=== PATIENT | male | born 2000 | race Caucasian/White ===

== ENCOUNTER 2018-07-23 10:36 | Inpatient (IN) ==
--- NOTE | 2018-07-23 11:24 | XR ---
EXAM DATE: 07/23/2018 11:12 AM EDT AGE/SEX: 17 years / Male INDICATIONS: . Rigth chest pain CLINICAL DATA: This is the patient's initial encounter. Patient reports that signs and symptoms have been present for 1 week and indicates a pain score of 3/10. MEDICAL/SURGICAL HISTORY: . Left pneumothorax . Left chest tube COMPARISON: [facility], XR CHEST PA AND LAT, 06/09/2018. . FINDINGS: There is a small right-sided apical pneumothorax measuring up to 3.2 cm. Lungs are clear. Cardiomegal y some contours are within normal limits. Bony thorax is intact. CONCLUSION: 1. Small right apical pneumothorax measuring up to 3.2 cm. Electronically signed by: Travis Caldwell MD 07/23/2018 11:23 AM EDT
--- NOTE | 2018-07-23 11:56 | ED ---
HPI General Chief Complaint: Respiratory Symptoms Stated Complaint: medical Time Seen by Provider: 07/23/18 11:38 Source: patient Mode of arrival: ambulatory Limitations: no limitations History of Present Illness HPI narrative: The patient is a 17-year-old male who presents to the emergency department for chest pain. The patient states he sneezed approximately 10 days ago and developed sudden sharp right-sided chest pain. The patient's pain is located over the right aspect of the chest, worse with lying over the affected area, certain movements, and inspiration. He does complain of mild shortness of breath. The patient has a history of similar symptoms in the past secondary to a spontaneous pneumothorax on the left side that was treated with 2 different thoracotomy tubes. The patient denies any known history of connective tissue disorder such as Marfan syndrome or Isaura- Danlos syndrome. The patient does state he is approximately 6 3-6 4 and height. He denies any trauma to the chest wall. Symptoms have been progressing. The patient does not currently have a primary physician or mathematics technician. MD complaint: chest pain Complete Quality Measures for STEMI Alert Patients STEMI Alert: No Onset (ago): day(s) Duration: constant Onset: other (Occurred after sneezing) Pain location: right chest Severity: moderate Severity scale (1-10): 5 Quality: sharp Pain radiation: none Relieving factors: nothing Exacerbating factors: inspiration and movement Context: other Associated symptoms: nausea Treatments prior to arrival chest pain: none Related Data Previous Rx's Medication Instructions Recorded tramadol 50 mg PO Q6H PRN #30 tab 06/02/18 Allergies Allergy/AdvReac Type Severity Reaction Status Date / Time adhesive tape Allergy Intermediate Rash Verified 05/27/18 06:44 zinc oxide Allergy Intermediate Nausea/Vomi Verified 05/27/18 06:44 ting Review of Systems ROS: all other systems reviewed are negative [facility] Medical History Medical History History of pneumothorax (Acute) Surgical History Surgical History H/O chest tube placement (Acute) History of lung surgery (Acute) Family History Family History Other Patient denies significant medical history Social History Social History Substance History: No History of Abuse Second Hand Smoke Exposure: No Smoking Status: Never smoker How Often Do You Have a Drink Containing Alcohol: Never Recent Travel in [facility] within the Last 8 Weeks: No Recent Out of Country Travel within the Last 8 Weeks: No Exam Narrative Exam Narrative: GENERAL: Awake, alert, pleasant 17-year-old male who appears his stated age and is in no acute respiratory distress. SKIN: Focused skin assessment warm/dry. HEAD: Atraumatic. Normocephalic. EYES: Pupils equal and round. No scleral icterus. No injection or drainage. ENT: No nasal bleeding or discharge. Mucous membranes pink and moist. NECK: Trachea midline. No JVD. CARDIOVASCULAR: Regular rate and rhythm. No murmur appreciated. RESPIRATORY: No accessory muscle use. Diminished breath sounds right apex. GASTROINTESTINAL: Abdomen soft, non-tender, nondistended. MUSCULOSKELETAL: No obvious deformities. No clubbing. No cyanosis. No edema. NEUROLOGICAL: Awake and alert. No obvious cranial nerve deficits. Motor grossly within normal limits. Normal speech. PSYCHIATRIC: Appropriate mood and affect; insight and judgment normal. Procedures Chest Tube Chest Tube 1: Chest Tube Location: Mid-Axillary Chest Size of Tube (cm): 10 Chest Tube Procedure: Yes betadine prep and sterile drapes applied Tube Sutured to Skin: Yes Sterile Dressing Applied: Yes Anesthesia: 1% Lidocaine Volume anesthetic (mL): 10 Incision made with: #11 blade Raymond of Air Preble: Yes Tube Drainage: none Post Procedure CXR?: Yes Patient Tolerated Procedure: Yes Post Procedure: sutured to skin and sterile dressing applied Procedural Sedation Indications: other ASA Class: ASA 1 Normal Healthy Patient Preparation: radiation monitor applied, pulse oximeter, capnometry used, supplemental O2 applied, suction/airway equipment at bedside and IV secured IV Propofol Dose (mgs): 200 Patient Tolerated Procedure: well Complications: none Interventions: oxygen applied Course Initial Documented Vital Signs Temperature 97.6 F 07/23/18 10:41 Pulse Rate 76 07/23/18 10:41 Respiratory Rate 07/23/18 10:41 Blood Pressure 151/99 H 07/23/18 10:41 Pulse Oximetry 99 07/23/18 10:41 Last Documented Vital Signs Temperature 97.6 F 07/23/18 10:41 Pulse Rate 77 07/23/18 11:36 Respiratory Rate 18 07/23/18 11:36 Blood Pressure 117/60 07/23/18 11:36 Pulse Oximetry 100 07/23/18 12:54 Medical Decision Making MDM Narrative Medical decision making narrative: IV was established and the patient was placed on cardiac telemetry monitoring and continuous pulse oximetry monitoring. Chest x-ray was obtained in triage reveals a right pneumothorax which measures 3.2 cm at the right apex. The patient does have a history of left sided pneumothorax, spontaneous, that was treated with 2 different chest tubes. Therefore, call was placed to the on-call mathematics technician. The patient was placed on a nonrebreather. I did have a discussion with the patient regarding possible conscious sedation and chest tube placement. I discussed the patient with the mathematics technician, Dr. Heath, who agrees with chest tube placement. Therefore, the patient had conscious sedation performed and a 10 [place] pigtail chest tube was placed in the right chest. Repeat chest x-ray reveals placement of the chest tube with reinflation of the lung. The patient tolerated the procedure without difficulty. The patient will be a admitted to the on-call medical service. Medical Screen Exam Complete: Yes Emergency Medical Condition: Yes Differential Diagnosis Differential Diagnosis: Differential diagnosis includes spontaneous pneumothorax , hemothorax, clinic tissue disorder, rib fracture, pulmonary contusion. Imaging Data Radiologist's impression: Chest X-Ray 07/23/18 00:00 CONCLUSION: 1. Small right apical pneumothorax measuring up to 3.2 cm. Chest X-Ray 07/23/18 12:37 CONCLUSION: Right-sided chest tube now in place. Marked decrease in size of right pneumothorax. Discharge Plan Discharge Disposition Patient Disposition: 30 Still Patient Discharge Condition Condition: Stable Discharge Details Diagnosis: Primary spontaneous pneumothorax Physicians Team ED Provider: Jesse Mathis Primary Care Provider: Primary Care Nai,Nataliya Other Providers: Nieves Landers ; Angel Hagan Rxs /Orders / Referrals /Forms Prescriptions: No Action tramadol 50 mg Tablet 50 mg PO Q6H PRN (Reason: Pain) Qty: 30 RF: 0 Status ED Status: Pending Admission
[2018-07-23] MEDS ORDERED: Sod Chloride 0.9% Inj 1,000 ML IV.SIG SCH (12:15)
--- NOTE | 2018-07-23 13:03 | XR ---
EXAM DATE: 07/23/2018 12:59 PM EDT AGE/SEX: 17 years / Male INDICATIONS: Chest tube placement. CLINICAL DATA: This is the patient's initial encounter. Patient reports that signs and symptoms have been present for 1 day and indicates a pain score of Nonresponsive. MEDICAL/SURGICAL HISTORY: . Left pneumothorax . Left chest tube COMPARISON: [facility] [place] 2V PA&LAT, 07/23/2018. . FINDINGS: Single AP view of the chest. Right-sided pigtail chest catheter in place. Marked decrease in size of right pneumothorax. It now measures 7 mm at the right lung apex. Mild subsegmental atelectasis of the right midlung. No evidence of pleural effusion. Cardiomediastinal silhouette within normal limits. CONCLUSION: Right-sided chest tube now in place. Marked decrease in size of right pneumothorax. Electronically signed by: Drew Arevalo MD 07/23/2018 1:02 PM EDT
[2018-07-23] MEDS ORDERED: Acetaminophen 325 MG Tablet PO PRN (13:19)
[2018-07-23] MEDS ORDERED: Ketorolac Inj 30 MG/ML (IVP) Vial IV.PUSH PRN (13:37)
--- NOTE | 2018-07-23 13:45 | P.HPIM ---
History of Present Illness Chief Complaint: Chest pain History of Present Illness: The patient is a 17-year-old male with past medical history of left sided pneumothorax status post VATS procedure who is presenting to the hospital with chest pain. On 04/20/2018 he developed acute shortness of breath along with chest pain. Patient was found to have a left spontaneous pneumothorax with shifting mediastinum, left hydropneumothorax with complete collapse of left lung. He has had a total of 3 chest tubes placed at [facility]. He says that any time a chest tube was removed, he would redevelop the pneumothorax. He had a VATS procedure on 05/10/2018. Patient's family requested a second opinion here at [facility] and he was transferred on 05/26/2018. He was discharged home with a Pneumostat in place which was eventually removed. The patient said he went to his follow-up visit as scheduled. He said that about 1- 1/2-2 weeks ago he sneezed and subsequently developed right-sided chest pain. He did not see any doctor for his chest pain but decided to come into the hospital as he could not sleep overnight. He says that he has been having a lot of sputum production but that is a chronic problem for him. In the emergency department he was found to have a right-sided pneumothorax and a chest tube was placed. The patient complained of mild irritation at the site of the chest tube. Inpatient Certification: I certify that the inpatient services were ordered in accordance with Medicare regulations governing the order. This includes certification that hospital inpatient services are reasonable and necessary and in the case of services not specified as inpatient-only under 42 CFR 419.22(n), that they are appropriately provided as inpatient services in accordance to with the 2-midnight benchmark under 43 CFR 412.3(e) Estimated Total Length of Stay (Days): 2 Plans for Post Hospital Care: Home Review of Systems All other systems reviewed negative except as stated in HPI [facility] - History History Provided By: Patient - Medical History Medical History: Medical History (Last Updated 07/23/18 @ 11:56 by Daphney Renteria) History of pneumothorax - Surgical History Surgical History: Surgical History (Last Updated 07/23/18 @ 13:46 by Karl Knox DO) H/O chest tube placement History of lung surgery - Family History Family History: Family History (Last Updated 07/23/18 @ 13:47 by Karl Knox DO) Other Patient denies significant medical history - Tobacco History Second Hand Smoke Exposure: No Smoking Status: Never smoker - Alcohol History How Often Do You Have a Drink Containing Alcohol: Never - Substance Use History Substance History: No History of Abuse - Travel History Recent Travel in the [place] Within the Last 8 Weeks: No Recent Travel Out of the Country Within the Last 8 Weeks: No - Immunization History Tetanus Immunization: Unsure Medications and Allergies Active Medications: Active Medications Acetaminophen (Tylenol) 650 mg PO Q4H PRN PRN Reason: Temp > 100.4 Albuterol (Duoneb Neb (Prn)) 1 ampul NEB Q2HR NEB PRN PRN Reason: DYSPNEA Albuterol (Duoneb Neb (Aakash)) 1 ampul NEB Q4HR NEB AAKASH Sodium Chloride (Ns Inj) 1,000 mls @ 0 mls/hr IV.SIG BOLUS AAKASH Last Admin: 07/23/18 12:25 Dose: 1,000 mls/hr Ketorolac Tromethamine (Toradol Inj) 30 mg IV.PUSH Q6H PRN PRN Reason: CHEST PAIN Senna/Docusate Sodium (Nalini-Colace) 1 tab PO BID AAKASH Allergies Allergy/AdvReac Type Severity Reaction Status Date / Time adhesive tape Allergy Intermediate Rash Verified 05/27/18 06:44 zinc oxide Allergy Intermediate Nausea/Vomi Verified 05/27/18 06:44 ting Exam Vital signs: Vital Signs 07/23/18 10:41 07/23/18 11:36 07/23/18 12:54 Temperature 97.6 F Pulse Rate 76 77 Respiratory Rate 18 18 Blood Pressure 151/99 H 117/60 Pulse Oximetry 99 100 100 Intake & Output 07/22/18 07/23/18 07/23/18 18:59 06:59 18:59 Weight 53.524 kg Narrative: GENERAL: NAD. SKIN: Focused skin assessment warm/dry. HEAD: Atraumatic. Normocephalic. EYES: Pupils equal and round. ENT: No nasal bleeding or discharge. Mucous membranes pink and moist. NECK: Trachea midline. No JVD. CARDIOVASCULAR: Regular rate and rhythm. No murmur appreciated. RESPIRATORY: No accessory muscle use. Diminished breath sounds right apex. GASTROINTESTINAL: Abdomen soft, non-tender, nondistended. MUSCULOSKELETAL: Chest tube in place on anterior right chest wall. No obvious deformities. No clubbing. No cyanosis. No edema. NEUROLOGICAL: Awake and alert. No obvious cranial nerve deficits. Motor grossly within normal limits. Normal speech. PSYCHIATRIC: Appropriate mood and affect; insight and judgment normal. Results - Imaging Impressions Chest X-Ray 07/23/18 00:00 CONCLUSION: 1. Small right apical pneumothorax measuring up to 3.2 cm. Chest X-Ray 07/23/18 12:37 CONCLUSION: Right-sided chest tube now in place. Marked decrease in size of right pneumothorax. Caprini VTE Risk Assessment Caprini VTE Risk Assessment: No/Low Risk (score <= 1) Caprini Risk Assessment Model: Point Value = 1 Point Value = 2 Point Value = 3 Point Value = 5 Age 41-60 Minor surgery BMI > 25 kg/m2 Swollen legs Varicose veins or History of unexplained or recurrent spontaneous Oral contraceptives or hormone replacement Sepsis (< 1 month) Serious lung disease, including pneumonia (< 1 month) Abnormal pulmonary function Acute myocardial infarction Congestive heart failure (< 1 month) History of inflammatory bowel disease Medical patient at bed rest Age 61-74 Arthroscopic surgery Major open surgery (> 45 min) Laparoscopic surgery (> 45 min) Malignancy Confined to bed (> 72 hours) Immobilizing plaster cast Central venous access Age >= 75 History of VTE Family history of VTE Factor V Leiden Prothrombin [id number] Lupus anticoagulant Anticardiolipin antibodies Elevated serum homocysteine Heparin-induced thrombocytopenia Other congenital or acquired thrombophilia Stroke (< 1 month) Elective arthroplasty Hip, pelvis, or leg fracture Acute spinal cord injury (< 1 month) Prophylaxis Regimen: Total Risk Factor Score Risk Level Prophylaxis Regimen 0-1 Low Early ambulation 2 Moderate Order ONE of the following: *Sequential Compression Device (SCD) *Heparin 5000 units SQ BID 3-4 Higher Order ONE of the following medications: *Heparin 5000 units SQ TID *Enoxaparin/Lovenox 40 mg SQ daily (WT < 150 kg, CrCl > 30 mL/min) *Enoxaparin/Lovenox 30 mg SQ daily (WT < 150 kg, CrCl > 10-29 mL/min) *Enoxaparin/Lovenox 30 mg SQ BID (WT < 150 kg, CrCl > 30 mL/min) AND/OR *Sequential Compression Device (SCD) 5 or more Highest Order ONE of the following medications: *Heparin 5000 units SQ TID (Preferred with Epidurals) *Enoxaparin/Lovenox 40 mg SQ daily (WT < 150 kg, CrCl > 30 mL/min) *Enoxaparin/Lovenox 30 mg SQ daily (WT < 150 kg, CrCl > 10-29 mL/min) *Enoxaparin/Lovenox 30 mg SQ BID (WT < 150 kg, CrCl > 30 mL/min) AND *Sequential Compression Device (SCD) Assessment and Plan - Plan Recurrent pneumothorax The patient has had multiple pneumothoraces on the left side requiring a VATS procedure. The patient is now found to have a right-sided pneumothorax, status post chest tube placement in the emergency department. The trigger seems to have been a sneeze 1.5-2 weeks prior to admission. -pulmonology and cardiothoracic surgery consults pending. -continue chest tube. -oxygen and nebs as needed. -Toradol for pain. -check labs in AM. Possible connective tissue disorder Considering the pt's body habitus and history of recurrent pneumothoraces, a possible connective tissue disorder is suspected. -treat pneumothorax as above. -outpt follow-up. PPx: SCDs
--- NOTE | 2018-07-23 17:10 | MB ---
cc: Angel Hagan MD DATE: 07/23/2018 HISTORY OF PRESENT ILLNESS: The patient is a 17-year-old male, nonsmoker, with a past medical history of spontaneous left pneumothorax, underwent chest tube placement in 03/2018 and had persistent air leak and subsequently underwent VATS procedure. He presented to [facility] ED with sharp right-sided chest pain, worse with lying on the affected area and with deep inspiration. He reports mild shortness of breath. The patient had similar symptoms in the past when he had the spontaneous pneumothorax in 03/2018. He denies any trauma to the chest and denies any history of connective tissue disease such as Marfan's syndrome. A chest x-ray in the ER showed a right apical pneumothorax at 3.2 cm. He underwent a right-sided pigtail chest tube placement in the ER and repeat x-ray post showed a 7-mm pneumothorax at the right lung apex. He is on a nonrebreather mask with saturation of 100%. The patient denies any cough or any constitutional symptoms. In addition, he denies any GI symptoms. PAST MEDICAL HISTORY: Spontaneous left pneumothorax in 03/2018. PAST SURGICAL HISTORY: Previous chest tube placement, previous VATS procedure. ALLERGIES: SEAFOOD, ZINC OXIDE, AND ADHESIVE TAPE. MEDICATIONS AT HOME: Tramadol p.r.n. FAMILY HISTORY: No history of lung disease. SOCIAL HISTORY: Nonsmoker, nondrinker. REVIEW OF SYSTEMS: As per HPI. The rest of review of systems is unremarkable. PHYSICAL EXAMINATION: GENERAL: A 17-year-old male lying in bed, in no acute distress, on 100% nonrebreather. VITAL SIGNS: Temperature 97.6, pulse of 76, respiratory rate of 18, blood pressure 151/99, saturation on 100% nonrebreather. HEENT: Atraumatic, normocephalic. Pupils equal and round, reactive to light and accommodation. Extraocular muscles intact. Conjunctivae pink. Nonicteric sclerae. Oral mucosa within normal. NECK: Supple. No JVD, adenopathy, or thyromegaly. Trachea in the midline. CARDIOVASCULAR: Regular rate and rhythm. Normal S1, S2. No murmurs, rubs, or gallops audible. LUNGS: Bilateral equal air entry. No rales or wheezing. ABDOMEN: Soft, nontender. No distention. Positive bowel sounds. EXTREMITIES: No cyanosis, clubbing, or edema. NEUROLOGIC: No focal sensory deficits. LABORATORY DATA: None available. RADIOGRAPHIC STUDIES: Initial chest x-ray showed a right apical pneumothorax at 3.2 cm. A chest x-ray post pigtail catheter placement showed decrease in the size of the right-sided pneumothorax, now measures 7 mm in the right lung apex. ASSESSMENT: 1. Right apical pneumothorax, status post pigtail catheter placement. 2. History of spontaneous left-sided pneumothorax in 03/2018, status post chest tube placement and VATS procedure. RECOMMENDATIONS: 1. Continue with oxygen and maintain sats above 92%. 2. Bronchodilators in the form of DuoNeb q.4 plus q.2 p.r.n. for shortness of breath. 3. Status post pigtail catheter placement in the ED. A chest tube to 20-cm wall suction. 4. We will consult cardiothoracic surgery. Patient known to them. 5. Pain control. 6. Repeat chest x-ray in a.m. 7. Further recommendations per primary team. 8. Continue other medical management per primary team. Thank you for consultation and allowing us to participate in this patient's care. MD RIO Blackman/sade , 01:12 PM , 01:23 PM
[2018-07-23] MEDS: Ketorolac Inj 30 MG/ML (IVP) Vial IV.PUSH PRN (20:58)
[2018-07-23] MEDS: Senna/Docusate Sodium 8.6/50 MG Tablet PO SCH (20:59)
[2018-07-24] MEDS: Ketorolac Inj 30 MG/ML (IVP) Vial IV.PUSH PRN ×2 (04:52→11:02)
[2018-07-24 06:42] LABS: Baso % (Auto) 0.6 % (0.0-2.0); Eos # (Auto) 0.2 th/mm3 (0.0-0.4); Hemoglobin 16.2 gm/dL (13.0-17.0); Lymph # (Auto) 1.6 th/mm3 (1.0-4.8); Lymph % (Auto) 27.4 % (9.0-44.0); Mean Corpuscular HGB Conc 34.5 % (32.0-36.0); Mean Corpuscular Hemoglobin 30.1 pg (27.0-34.0); Mean Corpuscular Volume 87.3 fL (80.0-100.0); Mean Platelet Volume 9.1 fL (7.0-11.0); Mono # (Auto) 0.3 th/mm3 (0.0-0.9); Mono % (Auto) 4.3 % (0.0-8.0); Neut # (Auto) 3.7 th/mm3 (1.8-7.7); Neut % (Auto) 63.7 % (16.0-70.0); Platelet Count 228 th/mm3 (150-450); Red Blood Count 5.39 mil/mm3 (4.50-5.90); Red Cell Distribution Width 12.9 % (11.6-17.2); White Blood Count 5.8 th/mm3 (4.0-11.0)
[2018-07-24 07:14] LABS: Alanine Aminotransferase 22 U/L (9-52); Albumin 4.1 g/dL (3.4-5.0); Anion Gap 9 meq/L (5-15); Aspartate Aminotransferase 19 U/L (15-39); Blood Urea Nitrogen 8 mg/dL (7-18); Calcium 8.6 mg/dL (8.5-10.1); Carbon Dioxide 28.9 meq/L (21.0-32.0); Chloride 104 meq/L (98-107); Glomerular Filtration Rate Greater Than 89 mL/min (>89); Glucose,Random 121 mg/dL (74-106); Potassium 3.4 meq/L (3.5-5.1); Sodium 142 meq/L (136-145)
[2018-07-24 07:17] LABS: Alkaline Phosphatase 102 U/L (45-117); Total Protein 7.4 g/dL (6.4-8.2)
[2018-07-24] MEDS: Senna/Docusate Sodium 8.6/50 MG Tablet PO SCH ×2 (08:40→22:47)
--- NOTE | 2018-07-24 10:30 | XR ---
EXAM DATE: 07/24/2018 10:18 AM EDT AGE/SEX: 17 years / Male INDICATIONS: Follow up, evaluate right side pneumothorax and chest tube CLINICAL DATA: This is the patient's subsequent encounter. Patient reports that signs and symptoms h ave been present for 2 days and indicates a pain score of 5/10. MEDICAL/SURGICAL HISTORY: . previous history of spontaneous pneumothorax on left side . prior hx of left side chest tube COMPARISON: [facility] [place], CHEST 2V PA&LAT, 07/23/2018. . FINDINGS: Small pigtail catheter in place on the right with persistent 1.3 cm right apical pneumothorax. There is no pneumothorax on the left The heart and pulmonary vascularity are normal. The portion of the bony skeleton visualized is unremarkable. CONCLUSION: Persistent 1.3 cm right apical pneumothorax. Pigtail catheter is not in the apex of the lung. Electronically signed by: Ed Herring MD 07/24/2018 10:29 AM EDT
--- NOTE | 2018-07-24 14:13 | P.PN ---
Subjective Interval history: Nursing denies any deterioration since last night. Patient himself has no new complaints. Physical Exam Vital signs: Vital Signs 07/23/18 15:36 07/23/18 16:00 07/23/18 19:41 Temperature 97.4 F L Pulse Rate 64 39 L 60 Respiratory Rate 18 18 16 Blood Pressure 104/74 102/53 L Pulse Oximetry 100 96 96 07/23/18 20:00 07/24/18 00:00 07/24/18 00:33 Temperature 97.3 F L 97.5 F L Pulse Rate 72 57 L 62 Respiratory Rate 18 18 16 Blood Pressure 129/70 127/64 Pulse Oximetry 99 97 07/24/18 03:51 07/24/18 04:00 07/24/18 08:00 Temperature 96.8 F L 98.2 F Pulse Rate 60 77 61 Respiratory Rate 16 18 16 Blood Pressure 128/59 L 118/58 L Pulse Oximetry 98 98 07/24/18 08:24 07/24/18 11:49 07/24/18 12:00 Temperature 97.6 F Pulse Rate 68 73 71 Respiratory Rate 20 18 16 Blood Pressure 122/58 L Pulse Oximetry 98 Intake & Output 07/23/18 07/24/18 07/24/18 18:59 06:59 18:59 Intake Total 1000 / 1000 860 / 860 Output Total 675 / 675 Balance 1000 / 1000 185 / 185 Weight 53.524 kg 61.4 kg Intake: IV 1000 / 1000 NS Inj 1,000 ML @ Wide Open IV. 1000 / 1000 SIG BOLUS SANTOSH Rx#:[id number] Oral 860 / 860 Other 0 / 0 Output: Urine 675 / 675 Narrative: Clear lung sounds bilaterally, unlabored breathing Chest tube on the right side Results - Labs CBC & Chem 7: 07/24/18 04:54 07/24/18 04:54 Laboratory Results - last 24 hr 07/24/18 07/24/18 04:54 04:54 WBC 5.8 RBC 5.39 Hgb 16.2 Hct 47.0 MCV 87.3 MCH 30.1 MCHC 34.5 RDW 12.9 Plt Count 228 MPV 9.1 Neut % (Auto) 63.7 Lymph % (Auto) 27.4 [place] % (Auto) 4.3 Eos % (Auto) 4.0 Baso % (Auto) 0.6 Neut # (Auto) 3.7 Lymph # (Auto) 1.6 [place] # (Auto) 0.3 Eos # (Auto) 0.2 Baso # (Auto) 0.0 WBC Differential . Differential Comment Auto diff final Sodium 142 Potassium 3.4 L Chloride 104 Carbon Dioxide 28.9 Anion Gap 9 BUN 8 Creatinine 0.88 Estimated GFR Greater than 89 Random Glucose 121 H Calcium 8.6 Total Bilirubin 1.6 H AST 19 ALT 22 Alkaline Phosphatase 102 Total Protein 7.4 Albumin 4.1 - Imaging Impressions Chest X-Ray 07/24/18 00:00 CONCLUSION: Persistent 1.3 cm right apical pneumothorax. Pigtail catheter is not in the apex of the lung. Assessment and Plan - Plan Recurrent pneumothorax The patient has had multiple pneumothoraces on the left side requiring a VATS procedure. The patient is now found to have a right-sided pneumothorax, status post chest tube placement in the emergency department. The trigger seems to have been a sneeze 1.5-2 weeks prior to admission. -pulmonology input appreciated, CT surgery apparently has seen the patient, possible VATS surgery in 2 days. -continue chest tube. -Toradol for pain. Possible connective tissue disorder Considering the pt's body habitus and history of recurrent pneumothoraces, a possible connective tissue disorder is suspected. -treat pneumothorax as above. -outpt follow-up.
--- NOTE | 2018-07-24 17:56 | P.PNPL ---
Subjective Interval history: 17 YOWm with h/o Lt PTX and VATS Now with Rt ptx Chest tube to suction No sob Physical Exam Vital signs: Vital Signs 07/23/18 19:41 07/23/18 20:00 07/24/18 00:00 Temperature 97.3 F L 97.5 F L Pulse Rate 60 72 57 L Respiratory Rate 16 18 18 Blood Pressure 129/70 127/64 Pulse Oximetry 96 99 97 07/24/18 00:33 07/24/18 03:51 07/24/18 04:00 Temperature 96.8 F L Pulse Rate 62 60 77 Respiratory Rate 16 16 18 Blood Pressure 128/59 L Pulse Oximetry 98 07/24/18 08:00 07/24/18 08:24 07/24/18 11:49 Temperature 98.2 F Pulse Rate 61 68 73 Respiratory Rate 16 20 18 Blood Pressure 118/58 L Pulse Oximetry 98 07/24/18 12:00 Temperature 97.6 F Pulse Rate 71 Respiratory Rate 16 Blood Pressure 122/58 L Pulse Oximetry 98 Intake & Output 07/23/18 07/24/18 07/24/18 18:59 06:59 18:59 Intake Total 1000 / 1000 860 / 860 Output Total 675 / 675 Balance 1000 / 1000 185 / 185 Weight 53.524 kg 61.4 kg Intake: IV 1000 / 1000 NS Inj 1,000 ML @ Wide Open IV. 1000 / 1000 SIG BOLUS SANTOSH Rx#:[id number] Oral 860 / 860 Other 0 / 0 Output: Urine 675 / 675 GENERAL: WBWN NAD SKIN: Warm and dry. HEAD: Normocephalic. EYES: No scleral icterus. No injection or drainage. NECK: Supple, trachea midline. No JVD or lymphadenopathy. CARDIOVASCULAR: Regular rate and rhythm without murmurs, gallops, or rubs. RESPIRATORY: Breath sounds equal bilaterally. No accessory muscle use. Rt chest tube to suction GASTROINTESTINAL: Abdomen soft, non-tender, nondistended. MUSCULOSKELETAL: No cyanosis, or edema. BACK: Nontender without obvious deformity. No CVA tenderness. Assessment and Plan - Plan IMPRESSION: Right PTX S/P Chest tube H/O Left VATS PLAN: Chest tube to suction Pain controll with Toradol CTS consulted
[2018-07-25] MEDS: Ketorolac Inj 30 MG/ML (IVP) Vial IV.PUSH PRN ×2 (04:24→15:48)
--- NOTE | 2018-07-25 07:05 | MB ---
cc: Nieves Landers MD DATE: 07/23/2018 HISTORY OF PRESENT ILLNESS: This is a 17-year-old male known to our service, who has undergone previous left video-assisted thoracoscopy back in 04/20/2018 at a [facility] in the [place] area that was transferred to our facility for persistent leak and pneumothorax. During the course of that admission, his pneumothorax spontaneously healed and we were able to successfully remove the chest tube without surgery. He also followed up in our office without any evidence of problems. He returned on this admission with pain on the right side of the chest, worse when lying on the affected area with deep inspiration, similar symptoms that he had back in March. He denied any trauma. Chest x-ray revealed a right apical pneumothorax of 3.2 cm. A right-sided pigtail catheter was placed; post showed a 7 mm pneumothorax at the apex. Currently, the patient is on room air. Chest x-ray shows a persistent 1.3 right apical pneumo. We were consulted to evaluate for right video-assisted thoracoscopy. PAST MEDICAL HISTORY: Includes spontaneous pneumothorax on the left, history of left video-assisted thoracoscopy, chest tube placement. ALLERGIES: INCLUDE ADHESIVE TAPE AND ZINC OXIDE. FAMILY HISTORY: None. SOCIAL HISTORY: No tobacco or alcohol. REVIEW OF SYSTEMS: GENERAL: No night sweats, fever, heat and cold intolerance. SKIN: No psoriasis, itching or hives. HEENT: No blurred vision, hearing loss. RESPIRATORY: Positive for shortness of breath, pleuritic chest pain. GASTROINTESTINAL: No diarrhea or vomiting. GENITOURINARY: No burning, frequency, urgency. CENTRAL NERVOUS SYSTEM: No history of TIA, CVA or seizure disorder. ENDOCRINOLOGY: No history of diabetes and hypothyroidism. PHYSICAL EXAMINATION: VITAL SIGNS: Blood pressure 122/60, heart rate of 70, afebrile. O2 saturation 98 on room air. GENERAL: The patient is awake, alert, in no acute distress. HEENT: Head is normocephalic, atraumatic. Pupils equal and reactive. Oral mucosa pink, moist. NECK: Supple. No JVD. CARDIOVASCULAR: Sounds S1, S2. Regular rate and rhythm. No audible rubs, murmurs, or gallops. LUNGS: He has got a right-sided upper chest wall chest tube to 20 cm of suction with no current air leak. Chest x-ray reviewed as above. EXTREMITIES: No cyanosis, clubbing, or edema. LABORATORY DATA: Lab work shows hemoglobin 16, hematocrit 47, white cell count of 5.8, platelet count of 228. Sodium 142, potassium 3.4, BUN of 8, creatinine 0.88, AST 19, ALT 22. ASSESSMENT: At this time, the patient has undergone previous left video-assisted thoracoscopy and now presents with a right-sided spontaneous pneumothorax. The patient is currently being worked up for possible connective tissue disorder; however, in the meantime this is the second reoccurrence; however, it is on the opposite side of the prior video-assisted thoracoscopy. PLAN: We did discuss undergoing right video-assisted thoracoscopy, bleb resection and pleurodesis. The patient wants to wait until tomorrow to make his decision. We will await further indication from him as to proceed with the procedure. He wants to talk with his family for further guidance. Dictated by AUGUSTIN Lance MD GULSHAN Kate/chari/renea , 03:12 PM , 03:22 PM
--- NOTE | 2018-07-25 07:35 | XR ---
EXAM DATE: 07/25/2018 7:26 AM EDT AGE/SEX: 17 years / Male INDICATIONS: Evaluate right side pneumothorax and chest tube, short of breath CLINICAL DATA: This is the patient's subsequent encounter. Patient reports that signs and symptoms h ave been present for 3 days and indicates a pain score of 5/10. MEDICAL/SURGICAL HISTORY: . spontaneous pneumothorax right side, has had pneumothorax on the le ft in the past also Chest tube, right. left lung stapled COMPARISON: [facility] – [place], CHEST EXPIRATION ONLY, 07/24/2018. . FINDINGS: Right-sided chest tube has been retracted slightly with pigtail tip now projecting over the lateral r ight mid hemithorax. Right apical pneumothorax has slightly enlarged measuring up to 1.8 cm with inte rval development of small amount of subcutaneous emphysema in the superior right chest wall. Cardiome diastinal contours are within normal limits. Bony thorax is intact. CONCLUSION: 1. Mild interval retraction of the right chest tube with slightly enlarged right apical pneumothorax measuring up to 1.8 cm and interval development of small amount of subcutaneous emphysema. Electronically signed by: Travis Caldwell MD 07/25/2018 7:34 AM EDT
[2018-07-25] MEDS: Senna/Docusate Sodium 8.6/50 MG Tablet PO SCH ×2 (10:17→21:04)
--- NOTE | 2018-07-25 11:14 | P.PN ---
Subjective Interval history: Nursing denies any deterioration since last night. Patient himself has no new complaints. Says he wants to get surgery done tomorrow. Physical Exam Vital signs: Vital Signs 07/24/18 11:49 07/24/18 12:00 07/24/18 16:00 Temperature 97.6 F 97.8 F Pulse Rate 73 71 54 L Respiratory Rate 18 16 16 Blood Pressure 122/58 L 114/56 L Pulse Oximetry 98 99 07/24/18 19:47 07/24/18 19:55 07/24/18 23:45 Temperature 97.5 F L Pulse Rate 70 77 102 H Respiratory Rate 20 20 18 Blood Pressure 127/59 L Pulse Oximetry 98 07/25/18 00:00 07/25/18 03:59 07/25/18 04:00 Temperature 97.8 F 97.8 F Pulse Rate 67 64 98 H Respiratory Rate 20 18 18 Blood Pressure 123/58 L 140/65 Pulse Oximetry 99 99 07/25/18 07:56 07/25/18 08:00 Temperature Pulse Rate 58 L Respiratory Rate 16 16 Blood Pressure Pulse Oximetry 99 Intake & Output 07/24/18 07/25/18 07/25/18 18:59 06:59 18:59 Weight 61 kg Narrative: Clear lungs bilaterally, unlabored breathing, Chest tube in place on right side Results - Labs CBC & Chem 7: 07/24/18 04:54 07/24/18 04:54 - Imaging Impressions Chest X-Ray 07/25/18 06:00 CONCLUSION: 1. Mild interval retraction of the right chest tube with slightly enlarged right apical pneumothorax measuring up to 1.8 cm and interval development of small amount of subcutaneous emphysema. Assessment and Plan - Plan Recurrent pneumothorax The patient has had multiple pneumothoraces on the left side requiring a VATS procedure. The patient is now found to have a right-sided pneumothorax, status post chest tube placement in the emergency department. The trigger seems to have been a sneeze 1.5-2 weeks prior to admission. -pulmonology input appreciated, CT surgery apparently has seen the patient, possible VATS surgery in tomorrow -continue chest tube. -Toradol for pain. Possible connective tissue disorder Considering the pt's body habitus and history of recurrent pneumothoraces, a possible connective tissue disorder is suspected. -treat pneumothorax as above. -outpt follow-up.
[2018-07-25] MEDS ORDERED: Dextrose 50% in Water 50 ML Vial IV.PUSH PRN (13:48)
[2018-07-25] MEDS ORDERED: ceFAZolin Inj 2,000 MG in Sodium Chlor 0.9% Inj 80 ML IV.SIG SCH (14:00)
[2018-07-25] MEDS ORDERED: Sodium Chloride 0.9% Irr Bot 500 ML, ceFAZolin Inj 500 MG IRRIGATION SCH ×2 (14:00)
--- NOTE | 2018-07-25 14:00 | P.PNCV ---
- Note Subjective/Hospital Course: 17-year-old male known to our service, who has undergone previous left video- assisted thoracoscopy back in 04/20/2018 at a [facility] in the [place] area that was transferred to our facility for persistent leak and pneumothorax. During the course of that admission, his pneumothorax spontaneously healed and we were able to successfully remove the chest tube without surgery. He also followed up in our office without any evidence of problems. He returned on this admission with pain on the right side of the chest, worse when lying on the affected area with deep inspiration, similar symptoms that he had back in March. He denied any trauma. Chest x-ray revealed a right apical pneumothorax of 3.2 cm. A right-sided pigtail catheter was placed; post showed a 7 mm pneumothorax at the apex. Currently, the patient is on room air. Chest x-ray shows a persistent 1.3 right apical pneumo. We were consulted to evaluate for right video-assisted thoracoscopy. 07/25 CXR noted : . Mild interval retraction of the right chest tube with slightly enlarged right apical pneumothorax measuring up to 1.8 cm and interval development of small amount of subcutaneous emphysema. pt has now agree to right VATS , bleb resection and pleurodesis / will schedule for am keep chest tube to suction Objective: Vital Signs - 24 hr 07/24/18 16:00 07/24/18 19:47 07/24/18 19:55 Temperature 97.8 F 97.5 F L Pulse Rate 54 L 70 77 Respiratory Rate 16 20 20 Blood Pressure 114/56 L 127/59 L Pulse Oximetry 99 98 07/24/18 23:45 07/25/18 00:00 07/25/18 03:59 Temperature 97.8 F Pulse Rate 102 H 67 64 Respiratory Rate 18 20 18 Blood Pressure 123/58 L Pulse Oximetry 99 07/25/18 04:00 07/25/18 07:56 07/25/18 08:00 Temperature 97.8 F 98.1 F Pulse Rate 98 H 58 L 58 L Respiratory Rate 18 16 20 Blood Pressure 140/65 115/64 Pulse Oximetry 99 99 99 GENERAL: A&O x 3 SKIN: Warm and dry. chest tube in place right chest wall , no air leak noted / to 20cm suction HEAD: Normocephalic. EYES: No scleral icterus. No injection or drainage. NECK: Supple, trachea midline. No JVD or lymphadenopathy. CARDIOVASCULAR: Regular rate and rhythm without murmurs, gallops, or rubs. RESPIRATORY: Breath sounds equal bilaterally. No accessory muscle use. GASTROINTESTINAL: Abdomen soft, non-tender, nondistended. MUSCULOSKELETAL: No cyanosis, or edema. BACK: Nontender without obvious deformity. No CVA tenderness. Result Diagrams: 07/24/18 04:54 07/24/18 04:54 - Plan (1) Pneumothorax Plan: for right VATS, bleb resection and pleurodesis in am
[2018-07-25] MEDS ORDERED: ceFAZolin 2 GM Premix Inj 2 GM/100 ML BAG IV.SIG SCH (15:00)
[2018-07-25 15:36] LABS: INR 1.2 Ratio; Prothrombin Time 11.7 sec (9.8-11.6)
--- NOTE | 2018-07-25 18:33 | P.PNPL ---
Subjective Interval history: 17 YOWm with h/o Lt PTX and VATS Now with Rt ptx Chest tube to suction No sob Seen by CTS Physical Exam Vital signs: Vital Signs 07/24/18 19:47 07/24/18 19:55 07/24/18 23:45 Temperature 97.5 F L Pulse Rate 70 77 102 H Respiratory Rate 20 20 18 Blood Pressure 127/59 L Pulse Oximetry 98 07/25/18 00:00 07/25/18 03:59 07/25/18 04:00 Temperature 97.8 F 97.8 F Pulse Rate 67 64 98 H Respiratory Rate 20 18 18 Blood Pressure 123/58 L 140/65 Pulse Oximetry 99 99 07/25/18 07:56 07/25/18 08:00 07/25/18 12:00 Temperature 98.1 F 98.3 F Pulse Rate 58 L 58 L 58 L Respiratory Rate 16 20 20 Blood Pressure 115/64 123/57 L Pulse Oximetry 99 99 98 07/25/18 15:20 07/25/18 17:27 Temperature 97.6 F Pulse Rate 79 80 Respiratory Rate 16 16 Blood Pressure 139/82 Pulse Oximetry 99 Intake & Output 07/24/18 07/25/18 07/25/18 18:59 06:59 18:59 Intake Total 240 / 240 Output Total 3 / 3 Balance 237 / 237 Weight 61 kg Intake: Oral 240 / 240 Output: Chest Tube Drainage 3 #1 Right 3 / Other: Date of Last Bowel Movement 07/25/18 GENERAL: MBMN NAD SKIN: Warm and dry. HEAD: Normocephalic. EYES: No scleral icterus. No injection or drainage. NECK: Supple, trachea midline. No JVD or lymphadenopathy. CARDIOVASCULAR: Regular rate and rhythm without murmurs, gallops, or rubs. RESPIRATORY: Breath sounds equal bilaterally. No accessory muscle use. Rt chest tube to suction GASTROINTESTINAL: Abdomen soft, non-tender, nondistended. MUSCULOSKELETAL: No cyanosis, or edema. BACK: Nontender without obvious deformity. No CVA tenderness. Assessment and Plan - Plan IMPRESSION: Right PTX S/P Chest tube H/O Left VATS PLAN: Chest tube to suction Pain controll with Toradol Plans for VATS in AM
[2018-07-26 04:13] LABS: Amorphous Sediment,Urine Rare /hpf; Bilirubin,Urine Negative (Negative); Clarity,Urine Cloudy (Clear); Color,Urine Yellow (Yellw/Straw); Glucose,Urine (UA) Negative (Negative); Leukocyte Esterase,Urine Negative (Negative); Mucus,Urine Many /lpf (Occasional); Nitrite,Urine Negative (Negative); Specific Gravity,Urine 1.017 (1.002-1.035)
--- NOTE | 2018-07-26 08:40 | P.PN ---
Subjective Interval history: This is a pleasant 17 y/o Male who has history of Left side Pneumothorax status post VATS procedure who came to ER with Chest pain and SOB, the patient was recently discharged from this facility, found to have again Right side Pneumothorax, status post chest tube placement. 07/26: Stable in his bedroom, discussed with nurse Miss Santo, he will go later toady for VATS procedure no nausea, vomit or diarrhea. Physical Exam Vital signs: Vital Signs 07/25/18 12:00 07/25/18 15:20 07/25/18 17:27 Temperature 98.3 F 97.6 F Pulse Rate 58 L 79 80 Respiratory Rate 20 16 16 Blood Pressure 123/57 L 139/82 Pulse Oximetry 98 99 07/25/18 19:00 07/25/18 20:00 07/25/18 20:26 Temperature 97.9 F Pulse Rate 70 65 79 Respiratory Rate 16 Blood Pressure 128/60 Pulse Oximetry 99 07/25/18 22:00 07/25/18 22:25 07/25/18 23:00 Temperature 97.9 F Pulse Rate 91 H 61 97 H Respiratory Rate 18 16 Blood Pressure 120/58 L Pulse Oximetry 98 99 07/26/18 00:00 07/26/18 00:52 07/26/18 01:00 Temperature Pulse Rate 63 56 L 88 Respiratory Rate 18 Blood Pressure Pulse Oximetry 07/26/18 02:00 07/26/18 03:00 07/26/18 04:00 Temperature 98.2 F Pulse Rate 75 88 69 Respiratory Rate 16 Blood Pressure 116/56 L Pulse Oximetry 99 07/26/18 04:44 07/26/18 05:00 07/26/18 06:00 Temperature Pulse Rate 62 71 65 Respiratory Rate 18 Blood Pressure Pulse Oximetry 07/26/18 07:40 Temperature Pulse Rate 81 Respiratory Rate 16 Blood Pressure Pulse Oximetry 95 Intake & Output 07/25/18 07/26/18 07/26/18 18:59 06:59 18:59 Intake Total 240 / 240 240 / 240 Output Total 705 / 705 Balance 237 / 237 -465 / -465 Weight 55 kg Intake: Oral 240 / 240 240 / 240 Output: Urine 700 / 700 Chest Tube Drainage 5 / 5 #1 Right 5 Other: Date of Last Bowel Movement 07/25/18 07/25/18 Narrative: GENERAL: NAD. HEAD: Atraumatic. Normocephalic. ENT: No nasal bleeding or discharge. Mucous membranes pink and moist. NECK: Trachea midline. No JVD. CARDIOVASCULAR: Regular rate and rhythm. No murmur appreciated. RESPIRATORY: breath sounds bilateral, no wheezing or crackles, chest tube in place on right side. GASTROINTESTINAL: Abdomen soft, non-tender, nondistended. MUSCULOSKELETAL: No clubbing cyanosis or edema. NEUROLOGICAL: Awake and alert. PSYCHIATRIC: Appropriate mood and affect; insight and judgment normal. Results - Labs CBC & Chem 7: 07/24/18 04:54 07/24/18 04:54 Laboratory Results - last 24 hr 07/25/18 07/25/18 07/25/18 14:42 14:42 17:21 PT 11.7 H INR 1.2 Urine Color Urine Clarity Urine pH Ur Specific [place] Urine Protein Urine Glucose (UA) Urine Ketones Urine Occult Blood Urine Nitrate Urine Bilirubin Urine Urobilinogen Ur Leukocyte Esterase Urine RBC Urine WBC Amorphous Sediment Urine Mucus Micro UA Comment Ur Microscopic Review Urine Culture Comments Nasal Screen MRSA (PCR) Not detected Blood Type A Negative Blood Type Recheck Required Antibody Screen Negative 07/26/18 02:15 PT INR Urine Color Yellow Urine Clarity Cloudy H Urine pH 7.0 Ur Specific [place] 1.017 Urine Protein Negative Urine Glucose (UA) Negative Urine Ketones Negative Urine Occult Blood Negative Urine Nitrate Negative Urine Bilirubin Negative Urine Urobilinogen 2.0 H Ur Leukocyte Esterase Negative Urine RBC 1 Urine WBC 3 Amorphous Sediment Rare H Urine Mucus Many H Micro UA Comment Culture not ind Ur Microscopic Review Not Reportable Urine Culture Comments Culture not ind Nasal Screen MRSA (PCR) Blood Type Blood Type Recheck Antibody Screen - Imaging Chest X-Ray 07/23/18 00:00 CONCLUSION: 1. Small right apical pneumothorax measuring up to 3.2 cm. Chest X-Ray 07/23/18 12:37 CONCLUSION: Right-sided chest tube now in place. Marked decrease in size of right pneumothorax. Assessment and Plan - Plan Recurrent pneumothorax The patient has had multiple pneumothoraces on the left side requiring a VATS procedure. The patient is now found to have a right-sided pneumothorax, status post chest tube placement in the emergency department. The trigger seems to have been a sneeze 1.5-2 weeks prior to admission. -pulmonology input appreciated, for VATS surgery, bleb resection and Pleurodesis later today. -continue chest tube. -Toradol for pain. Possible connective tissue disorder Considering the pt's body habitus and history of recurrent pneumothoraces, a possible connective tissue disorder is suspected. -treat pneumothorax as above. -outpt follow-up. Code Status: Full code. Discussed Condition With: patient and nurse Miss Santo Discharge Planning: once cleared by specialists.
[2018-07-26] MEDS: Senna/Docusate Sodium 8.6/50 MG Tablet PO SCH ×2 (09:39→23:10)
--- NOTE | 2018-07-26 10:28 | P.PNCV ---
- Note Subjective/Hospital Course: 17-year-old male known to our service, who has undergone previous left video- assisted thoracoscopy back in 04/20/2018 at a [facility] in the [place] area that was transferred to our facility for persistent leak and pneumothorax. During the course of that admission, his pneumothorax spontaneously healed and we were able to successfully remove the chest tube without surgery. He also followed up in our office without any evidence of problems. He returned on this admission with pain on the right side of the chest, worse when lying on the affected area with deep inspiration, similar symptoms that he had back in March. He denied any trauma. Chest x-ray revealed a right apical pneumothorax of 3.2 cm. A right-sided pigtail catheter was placed; post showed a 7 mm pneumothorax at the apex. Currently, the patient is on room air. Chest x-ray shows a persistent 1.3 right apical pneumo. We were consulted to evaluate for right video-assisted thoracoscopy. 07/25 CXR noted : . Mild interval retraction of the right chest tube with slightly enlarged right apical pneumothorax measuring up to 1.8 cm and interval development of small amount of subcutaneous emphysema. pt has now agree to right VATS , bleb resection and pleurodesis / will schedule for am keep chest tube to suction 07/26 on room air, for surgery today Objective: Vital Signs - 24 hr 07/25/18 12:00 07/25/18 15:20 07/25/18 17:27 Temperature 98.3 F 97.6 F Pulse Rate 58 L 79 80 Respiratory Rate 20 16 16 Blood Pressure 123/57 L 139/82 Pulse Oximetry 98 99 07/25/18 19:00 07/25/18 20:00 07/25/18 20:26 Temperature 97.9 F Pulse Rate 70 65 79 Respiratory Rate 16 Blood Pressure 128/60 Pulse Oximetry 99 07/25/18 22:00 07/25/18 22:25 07/25/18 23:00 Temperature 97.9 F Pulse Rate 91 H 61 97 H Respiratory Rate 18 16 Blood Pressure 120/58 L Pulse Oximetry 98 99 07/26/18 00:00 07/26/18 00:52 07/26/18 01:00 Temperature Pulse Rate 63 56 L 88 Respiratory Rate 18 Blood Pressure Pulse Oximetry 07/26/18 02:00 07/26/18 03:00 07/26/18 04:00 Temperature 98.2 F Pulse Rate 75 88 69 Respiratory Rate 16 Blood Pressure 116/56 L Pulse Oximetry 99 07/26/18 04:44 07/26/18 05:00 07/26/18 06:00 Temperature Pulse Rate 62 71 65 Respiratory Rate 18 Blood Pressure Pulse Oximetry 07/26/18 07:00 07/26/18 07:40 07/26/18 08:00 Temperature 98.8 F Pulse Rate 61 81 75 Respiratory Rate 18 16 Blood Pressure 133/62 Pulse Oximetry 100 95 07/26/18 09:00 07/26/18 10:00 Temperature Pulse Rate 76 94 H Respiratory Rate Blood Pressure Pulse Oximetry GENERAL: A&O x 3 SKIN: Warm and dry. right lateral chest tube in place , ? intermittent air leak noted HEAD: Normocephalic. EYES: No scleral icterus. No injection or drainage. NECK: Supple, trachea midline. No JVD or lymphadenopathy. CARDIOVASCULAR: Regular rate and rhythm without murmurs, gallops, or rubs. RESPIRATORY: Breath sounds equal bilaterally. No accessory muscle use. GASTROINTESTINAL: Abdomen soft, non-tender, nondistended. MUSCULOSKELETAL: No cyanosis, or edema. BACK: Nontender without obvious deformity. No CVA tenderness. Labs: Laboratory Results - last 12 hr 07/26/18 02:15 Urine Color Yellow Urine Clarity Cloudy H Urine pH 7.0 Ur Specific [place] 1.017 Urine Protein Negative Urine Glucose (UA) Negative Urine Ketones Negative Urine Occult Blood Negative Urine Nitrate Negative Urine Bilirubin Negative Urine Urobilinogen 2.0 H Ur Leukocyte Esterase Negative Urine RBC 1 Urine WBC 3 Amorphous Sediment Rare H Urine Mucus Many H Micro UA Comment Culture not ind Ur Microscopic Review Not Reportable Urine Culture Comments Culture not ind Result Diagrams: 07/24/18 04:54 07/24/18 04:54 - Plan (1) Pneumothorax Plan: for right VATS, bleb resection and pleurodesis today
[2018-07-26] MEDS ORDERED: Post-op Orders (for Pharmacy) OTHER STA (13:34)
--- NOTE | 2018-07-26 13:42 | P.OP ---
- Preoperative Diagnosis (1) Spontaneous pneumothorax - Postoperative Diagnosis (1) Spontaneous pneumothorax Date of procedure: 07/26/18 Procedure: Right thoracoscopic apical bleb resection, mechanical pleurodesis Anesthesia: MARITZA Surgeon: Nieves Landers MD [employer]: Aline Spain Pathology: other (apical blebs) Operation and Findings: After adequate general anesthesia the patient was placed in the left lateral decubitus position and the right chest was prepped and draped in usual manner. A small anterior port incision was performed and electrocautery was used to obtain hemostasis and carry the dissection down through the fascia. A port was initially placed followed by the camera. Exploration of the right hemithorax was notable for apical blebs. A second posterior port was positioned at ~6th intercostal space. The apical blebs were resected using a surgical stapler. A mechanical pleurodesis was performed at the apex down to the ~3rd rib.. A 28F right chest tube was positioned through the anterior port , and secured with a 0-silk suture. The lung was ventilated and no significant air leaks were found. The subcutaneous tissues of the posterior port was approximated running 2-0 Vicryl suture and the skin was approximated using running 4-0 Monocryl subcuticular stitch. All sponge and history counts were correct at the close the procedure and the patient was transferred to the PACU in stable condition
[2018-07-26] MEDS ORDERED: *Meperidine Inj 25 MG/ML Vial PERIprocedural Use ONLY ONE (14:13)
[2018-07-26] MEDS ORDERED: Morphine Inj 4 MG/ML Vial ONE (14:23)
[2018-07-26] MEDS ORDERED: fentaNYL Citrate Inj 100 MCG/2 ML Ampul ONE (14:23)
[2018-07-26] MEDS ORDERED: *morphine SULFATE 4 MG/ML PERIprocedure ONLY ONE (14:32)
--- NOTE | 2018-07-26 14:45 | XR ---
EXAM DATE: 07/26/2018 2:39 PM EDT AGE/SEX: 17 years / Male INDICATIONS: Post op thoracotomy. CLINICAL DATA: This is the patient's initial encounter. Patient reports that signs and symptoms have been present for 1 day and indicates a pain score of 3/10. MEDICAL/SURGICAL HISTORY: . Previous history of left and right sided pneumothorax. . Left bette g stapled. COMPARISON: C, CHEST 1V SINGLE AP, 07/25/2018. . FINDINGS: Air subcutaneous air along the right hemithorax, a right-sided chest tube is noted. I do not see a pn eumothorax. Heart size normal. Lungs are clear. CONCLUSION: Post surgical changes. Electronically signed by: Robert Patten MD 07/26/2018 2:44 PM EDT
[2018-07-26] MEDS: Ketorolac Inj 30 MG/ML (IVP) Vial IV.PUSH PRN (15:16)
[2018-07-26] MEDS ORDERED: Lidocaine PF 1% Inj 5 ML Syringe INFILTRATN ONE (15:59)
[2018-07-26] MEDS ORDERED: Phenylephrine/NS 1000 MCG/10ML Syringe IV.PUSH ONE (15:59)
[2018-07-26] MEDS ORDERED: Glycopyrrolate Inj 1 MG/5 ML Syringe IV.PUSH ONE (15:59)
[2018-07-26] MEDS ORDERED: Neostigmine Inj 5 MG/5 ML Syringe IV.PUSH ONE (15:59)
--- NOTE | 2018-07-26 18:46 | P.PNPL ---
Subjective Interval history: 17 YOWm with h/o Lt PTX and VATS Now with Rt ptx Chest tube to suction No sob Had Rt thoracoscopic bleb resection and pleurodesis Mild dizziness Physical Exam Vital signs: Vital Signs 07/25/18 19:00 07/25/18 20:00 07/25/18 20:26 Temperature 97.9 F Pulse Rate 70 65 79 Respiratory Rate 16 Blood Pressure 128/60 Pulse Oximetry 99 07/25/18 22:00 07/25/18 22:25 07/25/18 23:00 Temperature 97.9 F Pulse Rate 91 H 61 97 H Respiratory Rate 18 16 Blood Pressure 120/58 L Pulse Oximetry 98 99 07/26/18 00:00 07/26/18 00:52 07/26/18 01:00 Temperature Pulse Rate 63 56 L 88 Respiratory Rate 18 Blood Pressure Pulse Oximetry 07/26/18 02:00 07/26/18 03:00 07/26/18 04:00 Temperature 98.2 F Pulse Rate 75 88 69 Respiratory Rate 16 Blood Pressure 116/56 L Pulse Oximetry 99 07/26/18 04:44 07/26/18 05:00 07/26/18 06:00 Temperature Pulse Rate 62 71 65 Respiratory Rate 18 Blood Pressure Pulse Oximetry 07/26/18 07:00 07/26/18 07:40 07/26/18 08:00 Temperature 98.8 F Pulse Rate 61 81 75 Respiratory Rate 18 16 Blood Pressure 133/62 Pulse Oximetry 100 95 07/26/18 09:00 07/26/18 10:00 07/26/18 11:00 Temperature 98.0 F Pulse Rate 76 94 H 67 Respiratory Rate 18 Blood Pressure 139/59 L Pulse Oximetry 100 07/26/18 11:30 07/26/18 14:15 07/26/18 14:35 Temperature 97.0 F L Pulse Rate 80 125 H 122 H Respiratory Rate 16 22 18 Blood Pressure 149/67 H 147/69 H Pulse Oximetry 99 99 07/26/18 14:55 07/26/18 16:00 07/26/18 18:21 Temperature 98.0 F Pulse Rate 98 H 123 H 63 Respiratory Rate 20 18 Blood Pressure 131/63 142/67 H Pulse Oximetry 99 98 Intake & Output 07/25/18 07/26/18 07/26/18 18:59 06:59 18:59 Intake Total 240 / 240 240 / 240 940 / 940 Output Total 705 / 705 152 / 152 Balance 237 / 237 -465 / -465 788 / 788 Weight 55 kg Intake: Oral 240 / 240 240 / 240 240 / 240 Anesthesia Amount 700 / 700 Output: Urine 700 / 700 Estimated Blood Loss 100 / 100 Chest Tube Drainage 52 / 52 #1 Right Right 52 / 52 Other: # Voids 2 Date of Last Bowel Movement 07/25/18 07/25/18 GENERAL: WBWN, NAD SKIN: Warm and dry. HEAD: Normocephalic. EYES: No scleral icterus. No injection or drainage. NECK: Supple, trachea midline. No JVD or lymphadenopathy. CARDIOVASCULAR: Regular rate and rhythm without murmurs, gallops, or rubs. RESPIRATORY: Breath sounds equal bilaterally. No accessory muscle use. Rt chest tube, no air leak. GASTROINTESTINAL: Abdomen soft, non-tender, nondistended. MUSCULOSKELETAL: No cyanosis, or edema. BACK: Nontender without obvious deformity. No CVA tenderness. Assessment and Plan - Plan IMPRESSION: Right PTX S/P Chest tube H/O Left VATS S/p Rt thoracoscopic bleb resection and Mech pleurodeisi PLAN: Chest tube to suction Pain controll with Toradol Stable on RA
[2018-07-27] MEDS: Ketorolac Inj 30 MG/ML (IVP) Vial IV.PUSH PRN ×2 (03:38→10:30)
--- NOTE | 2018-07-27 03:54 | XR ---
EXAM DATE: 07/27/2018 3:41 AM EDT AGE/SEX: 17 years / Male INDICATIONS: Short of breath. CLINICAL DATA: This is the patient's subsequent encounter. Patient reports that signs and symptoms h ave been present for 1 week and indicates a pain score of 0/10. MEDICAL/SURGICAL HISTORY: . Previous history of left and right sided pneumothorax. . Left lung stapled. [place] [facility] [place]. . FINDINGS: Right chest tube remains in place. There is a tiny apical pneumothorax, unchanged. Right chest wall e mphysema persists. No infiltrate or effusion. Heart size stable, within normal limits. CONCLUSION: Tiny right apical pneumothorax. Chest tube remains in place. No infiltrate or effusion. Electronically signed by: Gee Boothe MD 07/27/2018 3:52 AM EDT
[2018-07-27 06:28] LABS: Hematocrit 44.5 % (39.0-51.0); Hemoglobin 15.7 gm/dL (13.0-17.0); Mean Corpuscular HGB Conc 35.3 % (32.0-36.0); Mean Corpuscular Hemoglobin 30.3 pg (27.0-34.0); Mean Corpuscular Volume 85.7 fL (80.0-100.0); Mean Platelet Volume 8.8 fL (7.0-11.0); Platelet Count 267 th/mm3 (150-450); Red Cell Distribution Width 12.7 % (11.6-17.2)
[2018-07-27 06:50] LABS: Potassium 3.9 meq/L (3.5-5.1)
[2018-07-27 06:53] LABS: Magnesium 2.2 mg/dL (1.5-2.5)
[2018-07-27] MEDS: Senna/Docusate Sodium 8.6/50 MG Tablet PO SCH ×2 (08:25→23:23)
--- NOTE | 2018-07-27 09:01 | P.PN ---
Subjective Interval history: This is a pleasant 17 y/o Male who has history of Left side Pneumothorax status post VATS procedure who came to ER with Chest pain and SOB, the patient was recently discharged from this facility, found to have again Right side Pneumothorax, status post chest tube placement. 07/26: Stable in his bedroom, discussed with nurse Miss Santo, he will go later toady for VATS procedure 07/27: right-sided pneumothorax, status post chest tube placement in the emergency department. status post Right Thoracoscopic apical bleb resection, Mechanical pleurodesis. in his bedroom, no nausea, vomit or diarrhea, Cardiothoracic DRAPERY CUTTER in to see the patient, no distress, talking in full sentences. Physical Exam Vital signs: Vital Signs 07/26/18 09:00 07/26/18 10:00 07/26/18 11:00 Temperature 98.0 F Pulse Rate 76 94 H 67 Respiratory Rate 18 Blood Pressure 139/59 L Pulse Oximetry 100 07/26/18 11:30 07/26/18 14:15 07/26/18 14:35 Temperature 97.0 F L Pulse Rate 80 125 H 122 H Respiratory Rate 16 22 18 Blood Pressure 149/67 H 147/69 H Pulse Oximetry 99 99 07/26/18 14:55 07/26/18 16:00 07/26/18 18:21 Temperature 98.0 F Pulse Rate 98 H 123 H 63 Respiratory Rate 20 18 Blood Pressure 131/63 142/67 H Pulse Oximetry 99 98 07/26/18 19:00 07/26/18 20:00 07/26/18 21:00 Temperature 98.3 F Pulse Rate 85 80 86 Respiratory Rate 16 Blood Pressure 127/58 L Pulse Oximetry 95 07/26/18 22:00 07/26/18 23:00 07/27/18 00:00 Temperature 98.2 F Pulse Rate 82 80 68 Respiratory Rate 16 Blood Pressure 112/53 L Pulse Oximetry 98 07/27/18 01:00 07/27/18 02:00 07/27/18 03:00 Temperature 98 F Pulse Rate 88 82 91 H Respiratory Rate 16 Blood Pressure 93/44 L Pulse Oximetry 98 07/27/18 04:00 07/27/18 04:43 07/27/18 05:00 Temperature Pulse Rate 86 88 Respiratory Rate 16 Blood Pressure Pulse Oximetry 07/27/18 06:00 07/27/18 07:00 07/27/18 08:00 Temperature 97.2 F L Pulse Rate 71 75 80 Respiratory Rate 18 Blood Pressure 121/60 Pulse Oximetry 98 Intake & Output 07/26/18 07/27/18 07/27/18 18:59 06:59 18:59 Intake Total 940 / 940 440 / 440 Output Total 152 / 152 418 / 418 Balance 788 / 788 Weight 57.5 kg Intake: IV 200 / 200 Ancef Inj 1,000 MG In NS Inj 200 / 200 100 ML @ 200 mls/hr IV.SIG Q8H SANTOSH Rx#:[id number] Oral 240 / 240 240 / 240 Anesthesia Amount 700 / 700 Output: Urine 400 / 400 Estimated Blood Loss 100 / 100 Chest Tube Drainage 52 / 52 Right 52 / 52 Right Upper Anterior Other: # Voids 2 Date of Last Bowel Movement 07/25/18 07/26/18 Narrative: GENERAL: NAD. HEAD: Atraumatic. Normocephalic. ENT: No nasal bleeding or discharge. Mucous membranes pink and moist. NECK: Trachea midline. No JVD. CARDIOVASCULAR: Regular rate and rhythm. No murmur appreciated. RESPIRATORY: breath sounds bilateral, no wheezing or crackles, chest tube in place on right side. GASTROINTESTINAL: Abdomen soft, non-tender, nondistended. MUSCULOSKELETAL: No clubbing cyanosis or edema. NEUROLOGICAL: Awake and alert. PSYCHIATRIC: Appropriate mood and affect; insight and judgment normal. Results - Labs CBC & Chem 7: 07/27/18 06:06 07/27/18 06:06 Laboratory Results - last 24 hr 07/27/18 07/27/18 06:06 06:06 WBC 12.0 H RBC 5.20 Hgb 15.7 Hct 44.5 MCV 85.7 MCH 30.3 MCHC 35.3 RDW 12.7 Plt Count 267 MPV 8.8 Potassium 3.9 Magnesium 2.2 - Imaging Impressions Chest X-Ray 07/26/18 13:34 CONCLUSION: Post surgical changes. Chest X-Ray 07/27/18 13:34 CONCLUSION: Tiny right apical pneumothorax. Chest tube remains in place. No infiltrate or effusion. - Procedures Date: 07/26/18 13:36 - Preoperative Diagnosis (1) Spontaneous pneumothorax - Postoperative Diagnosis (1) Spontaneous pneumothorax Date of procedure: 07/26/18 Procedure: Right thoracoscopic apical bleb resection, mechanical pleurodesis Anesthesia: GETA Surgeon: Nieves Landers MD Assessment and Plan - Plan Recurrent pneumothorax The patient has had multiple pneumothoraces on the left side requiring a VATS procedure. now with right-sided pneumothorax, status post chest tube placement in the emergency department. status post Right Thoracoscopic apical bleb resection, Mechanical pleurodesis. POD#1 Possible connective tissue disorder Considering the pt's body habitus and history of recurrent pneumothoraces, a possible connective tissue disorder is suspected. -treat pneumothorax as above. -outpt follow-up. Code Status: Full code. Discussed Condition With: Patient and nurse [facility] Discharge Planning: once cleared by specialists.
--- NOTE | 2018-07-27 14:36 | P.PNCV ---
- Note Subjective/Hospital Course: 17-year-old male known to our service, who has undergone previous left video- assisted thoracoscopy back in 04/20/2018 at a [facility] in the [place] area that was transferred to our facility for persistent leak and pneumothorax. During the course of that admission, his pneumothorax spontaneously healed and we were able to successfully remove the chest tube without surgery. He also followed up in our office without any evidence of problems. He returned on this admission with pain on the right side of the chest, worse when lying on the affected area with deep inspiration, similar symptoms that he had back in March. He denied any trauma. Chest x-ray revealed a right apical pneumothorax of 3.2 cm. A right-sided pigtail catheter was placed; post showed a 7 mm pneumothorax at the apex. Currently, the patient is on room air. Chest x-ray shows a persistent 1.3 right apical pneumo. We were consulted to evaluate for right video-assisted thoracoscopy. 07/25 CXR noted : . Mild interval retraction of the right chest tube with slightly enlarged right apical pneumothorax measuring up to 1.8 cm and interval development of small amount of subcutaneous emphysema. pt has now agree to right VATS , bleb resection and pleurodesis / will schedule for am keep chest tube to suction 07/26 on room air, for surgery today Right thoracoscopic apical bleb resection, mechanical pleurodesis 07/27 CXR noted small right apical PTX keep to suction for now f/u CXR in am Objective: Vital Signs - 24 hr 07/26/18 14:35 07/26/18 14:55 07/26/18 16:00 Temperature 98.0 F Pulse Rate 122 H 98 H 123 H Respiratory Rate 18 20 18 Blood Pressure 147/69 H 131/63 142/67 H Pulse Oximetry 99 99 98 07/26/18 18:21 07/26/18 19:00 07/26/18 20:00 Temperature 98.3 F Pulse Rate 63 85 80 Respiratory Rate 16 Blood Pressure 127/58 L Pulse Oximetry 95 07/26/18 21:00 07/26/18 22:00 07/26/18 23:00 Temperature 98.2 F Pulse Rate 86 82 80 Respiratory Rate 16 Blood Pressure 112/53 L Pulse Oximetry 98 07/27/18 00:00 07/27/18 01:00 07/27/18 02:00 Temperature Pulse Rate 68 88 82 Respiratory Rate Blood Pressure Pulse Oximetry 07/27/18 03:00 07/27/18 04:00 07/27/18 04:43 Temperature 98 F Pulse Rate 91 H 86 Respiratory Rate 16 16 Blood Pressure 93/44 L Pulse Oximetry 98 07/27/18 05:00 07/27/18 06:00 07/27/18 07:00 Temperature 97.2 F L Pulse Rate 88 71 75 Respiratory Rate 18 Blood Pressure 121/60 Pulse Oximetry 98 07/27/18 08:00 07/27/18 09:00 07/27/18 10:00 Temperature Pulse Rate 80 104 H 109 H Respiratory Rate Blood Pressure Pulse Oximetry 07/27/18 10:52 07/27/18 11:00 07/27/18 12:00 Temperature 98.6 F Pulse Rate 86 75 Respiratory Rate 18 18 Blood Pressure 120/78 Pulse Oximetry 99 07/27/18 13:00 07/27/18 14:00 Temperature Pulse Rate 120 H 85 Respiratory Rate Blood Pressure Pulse Oximetry GENERAL: A&O x 3 SKIN: Warm and dry. small incision right postero lateral chest wall intact HEAD: Normocephalic. EYES: No scleral icterus. No injection or drainage. NECK: Supple, trachea midline. No JVD or lymphadenopathy. CARDIOVASCULAR: Regular rate and rhythm without murmurs, gallops, or rubs. RESPIRATORY: Breath sounds equal bilaterally. No accessory muscle use. chest tube in place no air leak GASTROINTESTINAL: Abdomen soft, non-tender, nondistended. MUSCULOSKELETAL: No cyanosis, or edema. BACK: Nontender without obvious deformity. No CVA tenderness. Labs: Laboratory Results - last 12 hr 07/27/18 07/27/18 06:06 06:06 WBC 12.0 H RBC 5.20 Hgb 15.7 Hct 44.5 MCV 85.7 MCH 30.3 MCHC 35.3 RDW 12.7 Plt Count 267 MPV 8.8 Potassium 3.9 Magnesium 2.2 Result Diagrams: 07/27/18 06:06 07/27/18 06:06 Telemetry: NSR - Plan (1) Pneumothorax Plan: s/p right VATS, bleb resection and pleurodesis pulm toileting OOB ambulate pain control
--- NOTE | 2018-07-27 15:39 | P.PNPL ---
Subjective Interval history: 17 YOWm with h/o Lt PTX and VATS Chest tube to suction No sob Had Rt thoracoscopic bleb resection and pleurodesis Mild dizziness CXR small ptx Physical Exam Vital signs: Vital Signs 07/26/18 16:00 07/26/18 18:21 07/26/18 19:00 Temperature 98.0 F 98.3 F Pulse Rate 123 H 63 85 Respiratory Rate 18 16 Blood Pressure 142/67 H 127/58 L Pulse Oximetry 98 95 07/26/18 20:00 07/26/18 21:00 07/26/18 22:00 Temperature Pulse Rate 80 86 82 Respiratory Rate Blood Pressure Pulse Oximetry 07/26/18 23:00 07/27/18 00:00 07/27/18 01:00 Temperature 98.2 F Pulse Rate 80 68 88 Respiratory Rate 16 Blood Pressure 112/53 L Pulse Oximetry 98 07/27/18 02:00 07/27/18 03:00 07/27/18 04:00 Temperature 98 F Pulse Rate 82 91 H 86 Respiratory Rate 16 Blood Pressure 93/44 L Pulse Oximetry 98 07/27/18 04:43 07/27/18 05:00 07/27/18 06:00 Temperature Pulse Rate 88 71 Respiratory Rate 16 Blood Pressure Pulse Oximetry 07/27/18 07:00 07/27/18 08:00 07/27/18 09:00 Temperature 97.2 F L Pulse Rate 75 80 104 H Respiratory Rate 18 Blood Pressure 121/60 Pulse Oximetry 98 07/27/18 10:00 07/27/18 10:52 07/27/18 11:00 Temperature 98.6 F Pulse Rate 109 H 86 Respiratory Rate 18 18 Blood Pressure 120/78 Pulse Oximetry 99 07/27/18 12:00 07/27/18 13:00 07/27/18 14:00 Temperature Pulse Rate 75 120 H 85 Respiratory Rate Blood Pressure Pulse Oximetry Intake & Output 07/26/18 07/27/18 07/27/18 18:59 06:59 18:59 Intake Total 940 / 940 440 / 440 100 / 100 Output Total 152 / 152 418 / 418 Balance 788 / 788 22 / 22 100 / 100 Weight 57.5 kg Intake: IV 200 / 200 100 / 100 Ancef Inj 1,000 MG In NS Inj 200 / 200 100 / 100 100 ML @ 200 mls/hr IV.SIG Q8H SANTOSH Rx#:[id number] Oral 240 / 240 240 / 240 Anesthesia Amount 700 / 700 Output: Urine 400 / 400 Estimated Blood Loss 100 / 100 Chest Tube Drainage 52 / 52 / Right 52 / 52 Right Upper Anterior Other: # Voids 2 Date of Last Bowel Movement 07/25/18 07/26/18 GENERAL: WBWN WM, NAD SKIN: Warm and dry. HEAD: Normocephalic. EYES: No scleral icterus. No injection or drainage. NECK: Supple, trachea midline. No JVD or lymphadenopathy. CARDIOVASCULAR: Regular rate and rhythm without murmurs, gallops, or rubs. RESPIRATORY: Breath sounds equal bilaterally. No accessory muscle use. RT chest tube to suction GASTROINTESTINAL: Abdomen soft, non-tender, nondistended. MUSCULOSKELETAL: No cyanosis, or edema. BACK: Nontender without obvious deformity. No CVA tenderness. Assessment and Plan - Plan IMPRESSION: Right PTX S/P Chest tube H/O Left VATS S/p Rt thoracoscopic bleb resection and Mech pleurodeisi PLAN: Chest tube to suction Pain controll with Toradol Stable on RA CXR in AM.
[2018-07-28] MEDS: Ketorolac Inj 30 MG/ML (IVP) Vial IV.PUSH PRN (03:19)
--- NOTE | 2018-07-28 05:16 | XR ---
EXAM DATE: 07/28/2018 4:55 AM EDT AGE/SEX: 17 years / Male INDICATIONS: Follow up right pneumothorax. CLINICAL DATA: This is the patient's subsequent encounter. Patient reports that signs and symptoms h ave been present for 4 - 6 days and indicates a pain score of 5/10. MEDICAL/SURGICAL HISTORY: . Previous history of left and right sided pneumothorax. . Left anayeli ng stapled. [place] [facility] [place]. . FINDINGS: A single AP view of the chest demonstrates the lungs to be symmetrically aerated without evidence of mass, infiltrate or effusion. Right thoracostomy without pneumothorax. Small volume subcutaneous air overlies the chest. The cardiomediastinal contours are unremarkable. Osseous structures are intact. CONCLUSION: No pneumothorax. Electronically signed by: Flynn Patterson MD 07/28/2018 5:15 AM EDT
--- NOTE | 2018-07-28 09:17 | P.PN ---
Subjective Interval history: This is a pleasant 17 y/o Male who has history of Left side Pneumothorax status post VATS procedure who came to ER with Chest pain and SOB, the patient was recently discharged from this facility, found to have again Right side Pneumothorax, status post chest tube placement. 07/26: Stable in his bedroom, discussed with nurse Miss Santo, he will go later toady for VATS procedure 07/27: right-sided pneumothorax, status post chest tube placement in the emergency department. status post Right Thoracoscopic apical bleb resection, Mechanical pleurodesis. in his bedroom, Cardiothoracic BOX [employer]E FLANGER STITCHDOWNS in to see the patient, no distress, talking in full sentences. 07/28: Seen walking in the aisle stable, no shortness of breath, continue present care will probable remove Chest tube later today by Cardiothoracic surgery. no nausea, vomit or diarrhea. Physical Exam Vital signs: Vital Signs 07/27/18 10:00 07/27/18 10:52 07/27/18 11:00 Temperature 98.6 F Pulse Rate 109 H 86 Respiratory Rate 18 18 Blood Pressure 120/78 Pulse Oximetry 99 07/27/18 12:00 07/27/18 13:00 07/27/18 14:00 Temperature Pulse Rate 75 120 H 85 Respiratory Rate Blood Pressure Pulse Oximetry 07/27/18 15:00 07/27/18 16:00 07/27/18 17:00 Temperature 98.6 F Pulse Rate 98 H 85 61 Respiratory Rate 18 Blood Pressure 104/67 Pulse Oximetry 97 07/27/18 18:00 07/27/18 19:00 07/27/18 20:00 Temperature 98.2 F Pulse Rate 65 61 62 Respiratory Rate 22 Blood Pressure 106/57 L Pulse Oximetry 97 07/27/18 21:00 07/27/18 22:00 07/27/18 23:00 Temperature 97.6 F Pulse Rate 64 58 L 60 Respiratory Rate 22 Blood Pressure 114/56 L Pulse Oximetry 98 07/28/18 00:00 07/28/18 01:00 07/28/18 02:00 Temperature Pulse Rate 54 L 58 L 62 Respiratory Rate Blood Pressure Pulse Oximetry 07/28/18 03:00 07/28/18 04:00 07/28/18 05:00 Temperature 97.6 F Pulse Rate 67 76 84 Respiratory Rate 22 Blood Pressure 123/74 Pulse Oximetry 99 07/28/18 06:00 07/28/18 07:00 07/28/18 08:00 Temperature 98 F Pulse Rate 80 80 80 Respiratory Rate 14 Blood Pressure 127/61 Pulse Oximetry 99 Intake & Output 07/27/18 07/28/18 07/28/18 18:59 06:59 18:59 Intake Total 820 / 820 240 / 240 Output Total Balance 802 / 802 226 / 226 Weight 57.5 kg Intake: IV 100 / 100 Ancef Inj 1,000 MG In NS Inj 100 / 100 100 ML @ 200 mls/hr IV.SIG Q8H SANTOSH Rx#:[id number] Oral 720 / 720 240 / 240 Output: Chest Tube Drainage Right Upper Anterior Other: # Voids 3 2 Date of Last Bowel Movement 07/26/18 07/26/18 07/26/18 Narrative: GENERAL: NAD. HEAD: Atraumatic. Normocephalic. ENT: No nasal bleeding or discharge. Mucous membranes pink and moist. NECK: Trachea midline. No JVD. CARDIOVASCULAR: Regular rate and rhythm. No murmur appreciated. RESPIRATORY: breath sounds bilateral, no wheezing or crackles, chest tube in place on right side. GASTROINTESTINAL: Abdomen soft, non-tender, nondistended. MUSCULOSKELETAL: No clubbing cyanosis or edema. NEUROLOGICAL: Awake and alert. PSYCHIATRIC: Appropriate mood and affect; insight and judgment normal. Results - Labs CBC & Chem 7: 07/27/18 06:06 07/27/18 06:06 - Imaging Impressions Chest X-Ray 07/28/18 06:00 CONCLUSION: No pneumothorax. - Procedures Date: 07/26/18 13:36 - Preoperative Diagnosis (1) Spontaneous pneumothorax - Postoperative Diagnosis (1) Spontaneous pneumothorax Date of procedure: 07/26/18 Procedure: Right thoracoscopic apical bleb resection, mechanical pleurodesis Anesthesia: GETA Surgeon: Nieves Landers MD Assessment and Plan - Plan Recurrent pneumothorax The patient has had multiple pneumothoraces on the left side requiring a VATS procedure. now with right-sided pneumothorax, status post chest tube placement in the emergency department. status post Right Thoracoscopic apical bleb resection, Mechanical pleurodesis. POD#1 Possible connective tissue disorder Considering the pt's body habitus and history of recurrent pneumothoraces, a possible connective tissue disorder is suspected. -treat pneumothorax as above. -outpt follow-up. Code Status: Full Code. Discussed Condition With: Patient and nurse Miss Sanchez Discharge Planning: once cleared by specialists.
--- NOTE | 2018-07-28 11:24 | P.PNCV ---
- Note Subjective/Hospital Course: 17-year-old male known to our service, who has undergone previous left video- assisted thoracoscopy back in 04/20/2018 at a [facility] in the [place] area that was transferred to our facility for persistent leak and pneumothorax. During the course of that admission, his pneumothorax spontaneously healed and we were able to successfully remove the chest tube without surgery. He also followed up in our office without any evidence of problems. He returned on this admission with pain on the right side of the chest, worse when lying on the affected area with deep inspiration, similar symptoms that he had back in March. He denied any trauma. Chest x-ray revealed a right apical pneumothorax of 3.2 cm. A right-sided pigtail catheter was placed; post showed a 7 mm pneumothorax at the apex. Currently, the patient is on room air. Chest x-ray shows a persistent 1.3 right apical pneumo. We were consulted to evaluate for right video-assisted thoracoscopy. 07/25 CXR noted : . Mild interval retraction of the right chest tube with slightly enlarged right apical pneumothorax measuring up to 1.8 cm and interval development of small amount of subcutaneous emphysema. pt has now agree to right VATS , bleb resection and pleurodesis / will schedule for am keep chest tube to suction 07/26 on room air, for surgery today Right thoracoscopic apical bleb resection, mechanical pleurodesis 07/27 CXR noted small right apical PTX keep to suction for now f/u CXR in am 07/28 CXR no PTX, placed to water seal f/u CXR in am , if stable then dc chest tube Objective: Vital Signs - 24 hr 07/27/18 12:00 07/27/18 13:00 07/27/18 14:00 Temperature Pulse Rate 75 120 H 85 Respiratory Rate Blood Pressure Pulse Oximetry 07/27/18 15:00 07/27/18 16:00 07/27/18 17:00 Temperature 98.6 F Pulse Rate 98 H 85 61 Respiratory Rate 18 Blood Pressure 104/67 Pulse Oximetry 97 07/27/18 18:00 07/27/18 19:00 07/27/18 20:00 Temperature 98.2 F Pulse Rate 65 61 62 Respiratory Rate 22 Blood Pressure 106/57 L Pulse Oximetry 97 07/27/18 21:00 07/27/18 22:00 07/27/18 23:00 Temperature 97.6 F Pulse Rate 64 58 L 60 Respiratory Rate 22 Blood Pressure 114/56 L Pulse Oximetry 98 07/28/18 00:00 07/28/18 01:00 07/28/18 02:00 Temperature Pulse Rate 54 L 58 L 62 Respiratory Rate Blood Pressure Pulse Oximetry 07/28/18 03:00 07/28/18 04:00 07/28/18 05:00 Temperature 97.6 F Pulse Rate 67 76 84 Respiratory Rate 22 Blood Pressure 123/74 Pulse Oximetry 99 07/28/18 06:00 07/28/18 07:00 07/28/18 08:00 Temperature 98 F Pulse Rate 80 80 80 Respiratory Rate 14 Blood Pressure 127/61 Pulse Oximetry 99 GENERAL: A&O x 3 SKIN: Warm and dry. HEAD: Normocephalic. EYES: No scleral icterus. No injection or drainage. NECK: Supple, trachea midline. No JVD or lymphadenopathy. CARDIOVASCULAR: Regular rate and rhythm without murmurs, gallops, or rubs. RESPIRATORY: Breath sounds equal bilaterally. No accessory muscle use. chest tube now to water seal, no air leak GASTROINTESTINAL: Abdomen soft, non-tender, nondistended. MUSCULOSKELETAL: No cyanosis, or edema. BACK: Nontender without obvious deformity. No CVA tenderness. Result Diagrams: 07/27/18 06:06 07/27/18 06:06 Telemetry: NSR - Plan (1) Pneumothorax Plan: s/p right VATS, bleb resection and pleurodesis pulm toileting OOB ambulate pain control chest tube to water seal/ eval for removal in am
--- NOTE | 2018-07-28 17:36 | P.PNPL ---
Subjective Interval history: 17 YOWm with h/o Lt PTX and VATS Chest tube to suction No sob Had Rt thoracoscopic bleb resection and pleurodesis Mild dizziness CXR no ptx Physical Exam Vital signs: Vital Signs 07/27/18 18:00 07/27/18 19:00 07/27/18 20:00 Temperature 98.2 F Pulse Rate 65 61 62 Respiratory Rate 22 Blood Pressure 106/57 L Pulse Oximetry 97 07/27/18 21:00 07/27/18 22:00 07/27/18 23:00 Temperature 97.6 F Pulse Rate 64 58 L 60 Respiratory Rate 22 Blood Pressure 114/56 L Pulse Oximetry 98 07/28/18 00:00 07/28/18 01:00 07/28/18 02:00 Temperature Pulse Rate 54 L 58 L 62 Respiratory Rate Blood Pressure Pulse Oximetry 07/28/18 03:00 07/28/18 04:00 07/28/18 05:00 Temperature 97.6 F Pulse Rate 67 76 84 Respiratory Rate 22 Blood Pressure 123/74 Pulse Oximetry 99 07/28/18 06:00 07/28/18 07:00 07/28/18 08:00 Temperature 98 F Pulse Rate 80 80 80 Respiratory Rate 14 Blood Pressure 127/61 Pulse Oximetry 99 07/28/18 11:00 07/28/18 12:00 07/28/18 14:00 Temperature 97.8 F Pulse Rate 81 79 67 Respiratory Rate 16 Blood Pressure 124/64 Pulse Oximetry 99 07/28/18 15:00 07/28/18 16:00 07/28/18 17:00 Temperature 98.2 F Pulse Rate 59 L 53 L 55 L Respiratory Rate 15 Blood Pressure 121/58 L Pulse Oximetry 98 Intake & Output 07/27/18 07/28/18 07/28/18 18:59 06:59 18:59 Intake Total 820 / 820 240 / 240 Output Total Balance 802 / 802 226 / 226 Weight 57.5 kg Intake: IV 100 / 100 Ancef Inj 1,000 MG In NS Inj 100 / 100 100 ML @ 200 mls/hr IV.SIG Q8H SANTOSH Rx#:[id number] Oral 720 / 720 240 / 240 Output: Chest Tube Drainage Right Upper Anterior Other: # Voids 3 2 Date of Last Bowel Movement 07/26/18 07/26/18 07/28/18 GENERAL: WBWn NAD SKIN: Warm and dry. HEAD: Normocephalic. EYES: No scleral icterus. No injection or drainage. NECK: Supple, trachea midline. No JVD or lymphadenopathy. CARDIOVASCULAR: Regular rate and rhythm without murmurs, gallops, or rubs. RESPIRATORY: Breath sounds equal bilaterally. No accessory muscle use. Chest tube to water seal. GASTROINTESTINAL: Abdomen soft, non-tender, nondistended. MUSCULOSKELETAL: No cyanosis, or edema. BACK: Nontender without obvious deformity. No CVA tenderness. Assessment and Plan - Plan IMPRESSION: Right PTX S/P Chest tube H/O Left VATS S/p Rt thoracoscopic bleb resection and Mech pleurodeisi PLAN: Chest tube to suction Pain controll with Toradol Stable on RA Stable from Pulm standpoint Available prn over weekend.
[2018-07-28] MEDS: Senna/Docusate Sodium 8.6/50 MG Tablet PO SCH ×2 (17:37→21:09)
[2018-07-28 21:28] VITALS: RESP 16
--- NOTE | 2018-07-29 06:59 | XR ---
EXAM DATE: 07/29/2018 6:41 AM EDT AGE/SEX: 17 years / Male INDICATIONS: Shortness of breath, possible pneumothorax. CLINICAL DATA: This is the patient's subsequent encounter. Patient reports that signs and symptoms h ave been present for 1 week and indicates a pain score of 5/10. MEDICAL/SURGICAL HISTORY: . Previous pneumothorax. None. COMPARISON: [facility] [place] 1V SINGLE AP, 07/28/2018. . FINDINGS: A single AP view of the chest demonstrates the lungs to be symmetrically aerated without evidence of mass, infiltrate or effusion. A right thoracostomy tube without pneumothorax. Small volume subcutaneo us air over the right chest. The cardiomediastinal contours are unremarkable. Osseous structures ar e intact. CONCLUSION: Right chest tube in good position. No pneumothorax. Electronically signed by: Flynn Patterson MD 07/29/2018 6:58 AM EDT
--- NOTE | 2018-07-29 08:00 | P.PNIM ---
Subjective Interval history: f/u; pneumothorax in no acute distress. is comfortable with mild pleuritic chest pain. otherwise no other complaints. chest tube is in place. Physical Exam Vital signs: Vital Signs 07/28/18 08:00 07/28/18 11:00 07/28/18 12:00 Temperature 97.8 F Pulse Rate 80 81 79 Respiratory Rate 16 Blood Pressure 124/64 Pulse Oximetry 99 07/28/18 14:00 07/28/18 15:00 07/28/18 16:00 Temperature 98.2 F Pulse Rate 67 59 L 53 L Respiratory Rate 15 Blood Pressure 121/58 L Pulse Oximetry 98 07/28/18 17:00 07/28/18 17:33 07/28/18 19:00 Temperature 97.4 F L Pulse Rate 55 L 61 58 L Respiratory Rate 16 Blood Pressure 113/56 L Pulse Oximetry 96 07/28/18 20:00 07/28/18 21:00 07/28/18 22:00 Temperature Pulse Rate 58 L 60 54 L Respiratory Rate Blood Pressure Pulse Oximetry 07/28/18 23:00 07/29/18 00:00 07/29/18 01:00 Temperature 98 F Pulse Rate 56 L 79 69 Respiratory Rate 16 Blood Pressure 104/59 L Pulse Oximetry 96 07/29/18 02:00 07/29/18 03:00 07/29/18 04:00 Temperature 98.2 F Pulse Rate 93 H 80 80 Respiratory Rate 16 Blood Pressure 119/66 Pulse Oximetry 96 07/29/18 04:59 07/29/18 06:00 Temperature Pulse Rate 110 H 83 Respiratory Rate Blood Pressure Pulse Oximetry Intake & Output 07/28/18 07/29/18 07/29/18 18:59 06:59 18:59 Intake Total 480 / 480 480 / 480 Output Total 0 / 0 Balance 480 / 480 480 / 480 Weight 57 kg Intake: Oral 480 / 480 480 / 480 Output: Chest Tube Drainage 0 / 0 Right Upper Anterior 0 / 0 Other: # Voids 3 2 Date of Last Bowel Movement 07/28/18 07/29/18 # Bowel Movements 1 - Constitutional no acute distress - Routine Respiratory Exam Present: CTA bilaterally (chest tube is in place.) - Routine Cardiovascular Exam Present: RRR - Routine Abdominal Exam Present: soft - Routine Extremities Exam Comments: no pedal edema. - Routine Neurological Exam Present: alert, oriented X3 Results - Labs CBC & Chem 7: 07/27/18 06:06 07/27/18 06:06 - Imaging Impressions Chest X-Ray 07/29/18 06:00 CONCLUSION: Right chest tube in good position. No pneumothorax. - Procedures Date: 07/26/18 13:36 - Preoperative Diagnosis (1) Spontaneous pneumothorax - Postoperative Diagnosis (1) Spontaneous pneumothorax Date of procedure: 07/26/18 Procedure: Right thoracoscopic apical bleb resection, mechanical pleurodesis Anesthesia: GETA Surgeon: Nieves Landers MD Assessment and Plan - Plan Recurrent pneumothorax The patient has had multiple pneumothoraces on the left side requiring a VATS procedure. now with right-sided pneumothorax, status post chest tube placement in the emergency department. status post Right Thoracoscopic apical bleb resection, Mechanical pleurodesis. CT surgery following. Possible connective tissue disorder Considering the pt's body habitus and history of recurrent pneumothoraces, a possible connective tissue disorder is suspected. -treat pneumothorax as above. -outpt follow-up. Discharge Planning: dc home when cleared by CT surgery.
[2018-07-29] MEDS: Senna/Docusate Sodium 8.6/50 MG Tablet PO SCH (08:25)
[2018-07-29 09:00] VITALS: O2SAT 100
[2018-07-29] MEDS: Ketorolac Inj 30 MG/ML (IVP) Vial IV.PUSH PRN (09:46)
--- NOTE | 2018-07-29 09:52 | P.PNCV ---
- Note Subjective/Hospital Course: 17-year-old male known to our service, who has undergone previous left video- assisted thoracoscopy back in 04/20/2018 at a [facility] in the [place] area that was transferred to our facility for persistent leak and pneumothorax. During the course of that admission, his pneumothorax spontaneously healed and we were able to successfully remove the chest tube without surgery. He also followed up in our office without any evidence of problems. He returned on this admission with pain on the right side of the chest, worse when lying on the affected area with deep inspiration, similar symptoms that he had back in March. He denied any trauma. Chest x-ray revealed a right apical pneumothorax of 3.2 cm. A right-sided pigtail catheter was placed; post showed a 7 mm pneumothorax at the apex. Currently, the patient is on room air. Chest x-ray shows a persistent 1.3 right apical pneumo. We were consulted to evaluate for right video-assisted thoracoscopy. 07/25 CXR noted : . Mild interval retraction of the right chest tube with slightly enlarged right apical pneumothorax measuring up to 1.8 cm and interval development of small amount of subcutaneous emphysema. pt has now agree to right VATS , bleb resection and pleurodesis / will schedule for am keep chest tube to suction 07/26 on room air, for surgery today Right thoracoscopic apical bleb resection, mechanical pleurodesis 07/27 CXR noted small right apical PTX keep to suction for now f/u CXR in am 07/28 CXR no PTX, placed to water seal f/u CXR in am , if stable then dc chest tube 07/29 Doing well DC chest tube Okay to discharge from surgical standpoint Objective: Vital Signs - 24 hr 07/28/18 11:00 07/28/18 12:00 07/28/18 14:00 Temperature 97.8 F Pulse Rate 81 79 67 Respiratory Rate 16 Blood Pressure 124/64 Pulse Oximetry 99 07/28/18 15:00 07/28/18 16:00 07/28/18 17:00 Temperature 98.2 F Pulse Rate 59 L 53 L 55 L Respiratory Rate 15 Blood Pressure 121/58 L Pulse Oximetry 98 07/28/18 17:33 07/28/18 19:00 07/28/18 20:00 Temperature 97.4 F L Pulse Rate 61 58 L 58 L Respiratory Rate 16 Blood Pressure 113/56 L Pulse Oximetry 96 07/28/18 21:00 07/28/18 22:00 07/28/18 23:00 Temperature 98 F Pulse Rate 60 54 L 56 L Respiratory Rate 16 Blood Pressure 104/59 L Pulse Oximetry 96 07/29/18 00:00 07/29/18 01:00 07/29/18 02:00 Temperature Pulse Rate 79 69 93 H Respiratory Rate Blood Pressure Pulse Oximetry 07/29/18 03:00 07/29/18 04:00 07/29/18 04:59 Temperature 98.2 F Pulse Rate 80 80 110 H Respiratory Rate 16 Blood Pressure 119/66 Pulse Oximetry 96 07/29/18 06:00 07/29/18 07:00 07/29/18 08:00 Temperature 98.5 F Pulse Rate 83 73 94 H Respiratory Rate 16 Blood Pressure 116/60 Pulse Oximetry 100 07/29/18 09:00 Temperature Pulse Rate 97 H Respiratory Rate Blood Pressure Pulse Oximetry Result Diagrams: 07/27/18 06:06 07/27/18 06:06 - Plan (1) Pneumothorax Plan: s/p right VATS, bleb resection and pleurodesis pulm toileting OOB ambulate pain control chest tube to water seal/ eval for removal in am
--- NOTE | 2018-07-29 11:30 | P.DS ---
Date of admission: 07/23/18 14:21 Primary care physician: No Primary Care Physician Brief History from admission: The patient is a 17-year-old male with past medical history of left sided pneumothorax status post VATS procedure who is presenting to the hospital with chest pain. On 04/20/2018 he developed acute shortness of breath along with chest pain. Patient was found to have a left spontaneous pneumothorax with shifting mediastinum, left hydropneumothorax with complete collapse of left lung. He has had a total of 3 chest tubes placed at [facility]. He says that any time a chest tube was removed, he would redevelop the pneumothorax. He had a VATS procedure on 05/10/2018. Patient's family requested a second opinion here at [facility] and he was transferred on 05/26/2018. He was discharged home with a Pneumostat in place which was eventually removed. The patient said he went to his follow-up visit as scheduled. He said that about 1- 1/2-2 weeks ago he sneezed and subsequently developed right-sided chest pain. He did not see any doctor for his chest pain but decided to come into the hospital as he could not sleep overnight. He says that he has been having a lot of sputum production but that is a chronic problem for him. In the emergency department he was found to have a right-sided pneumothorax and a chest tube was placed. The patient complained of mild irritation at the site of the chest tube. DS: Summary Hospital Course: Recurrent pneumothorax The patient has had multiple pneumothoraces on the left side requiring a VATS procedure. now with right-sided pneumothorax, status post chest tube placement in the emergency department. status post Right Thoracoscopic apical bleb resection, Mechanical pleurodesis. repeated CXR before discharge with no pneumothorax- cleared by CT surgery after chest tube removal. Possible connective tissue disorder Considering the pt's body habitus and history of recurrent pneumothoraces, a possible connective tissue disorder is suspected. -treat pneumothorax as above. -outpt follow-up. - Time Spent with Patient Total time spent providing and/or coordinating discharge services: Less than 30 minutes - Quality: VTE Deep Vein Thrombosis/Pulmonary Embolism Present on Admission: No Exam Vital signs: Vital Signs 07/28/18 12:00 07/28/18 14:00 07/28/18 15:00 Temperature 98.2 F Pulse Rate 79 67 59 L Respiratory Rate 15 Blood Pressure 121/58 L Pulse Oximetry 98 07/28/18 16:00 07/28/18 17:00 07/28/18 17:33 Temperature Pulse Rate 53 L 55 L 61 Respiratory Rate Blood Pressure Pulse Oximetry 07/28/18 19:00 07/28/18 20:00 07/28/18 21:00 Temperature 97.4 F L Pulse Rate 58 L 58 L 60 Respiratory Rate 16 Blood Pressure 113/56 L Pulse Oximetry 96 07/28/18 22:00 07/28/18 23:00 07/29/18 00:00 Temperature 98 F Pulse Rate 54 L 56 L 79 Respiratory Rate 16 Blood Pressure 104/59 L Pulse Oximetry 96 07/29/18 01:00 07/29/18 02:00 07/29/18 03:00 Temperature 98.2 F Pulse Rate 69 93 H 80 Respiratory Rate 16 Blood Pressure 119/66 Pulse Oximetry 96 07/29/18 04:00 07/29/18 04:59 07/29/18 06:00 Temperature Pulse Rate 80 110 H 83 Respiratory Rate Blood Pressure Pulse Oximetry 07/29/18 07:00 07/29/18 08:00 07/29/18 09:00 Temperature 98.5 F Pulse Rate 73 94 H 97 H Respiratory Rate 16 Blood Pressure 116/60 Pulse Oximetry 100 07/29/18 10:00 07/29/18 11:00 Temperature 98.4 F Pulse Rate 83 97 H Respiratory Rate 16 Blood Pressure 119/75 Pulse Oximetry 100 Intake & Output 07/28/18 07/29/18 07/29/18 18:59 06:59 18:59 Intake Total 480 / 480 480 / 480 Output Total 0 / 0 Balance 480 / 480 480 / 480 Weight 57 kg Intake: Oral 480 / 480 480 / 480 Output: Chest Tube Drainage 0 / 0 Right Upper Anterior 0 / 0 Other: # Voids 3 2 Date of Last Bowel Movement 07/28/18 07/29/18 # Bowel Movements 1 - Constitutional no acute distress - Routine Respiratory Exam Present: CTA bilaterally - Routine Cardiovascular Exam Present: RRR - Routine Abdominal Exam Present: soft - Routine Extremities Exam Comments: no pedal edema. - Routine Neurological Exam Present: alert, oriented X3 Results Procedures completed during hospitalization: Date: 07/26/18 13:36 - Preoperative Diagnosis (1) Spontaneous pneumothorax - Postoperative Diagnosis (1) Spontaneous pneumothorax Date of procedure: 07/26/18 Procedure: Right thoracoscopic apical bleb resection, mechanical pleurodesis Anesthesia: GETA Surgeon: Nieves Landers MD Completed studies during hospitalization: Pending at discharge 07/26/18 16:53 Surgical [PTH] Routine - Impressions ITS Impressions Chest X-Ray 07/29/18 06:00 CONCLUSION: Right chest tube in good position. No pneumothorax. Discharge Plan - Discharge Disposition Patient Disposition: 01 Discharge Home - Discharge Condition Condition: Stable - Physicians Team Primary Care Provider: Primary Care Nataliya Trimble Attending Provider: Nelida Maza Other Providers: Nieves Landers MD ; Angel Hagan MD ; Derrick Arce MD
[2018-07-29 15:01] VITALS: BP 128/67; TEMP 98.3
[2018-07-29 15:04] VITALS: PULSE 96
== END 2018-07-29 16:00 | disposition home or self-care (01) ==
LOC: NEPD 10:36 → NEDA 14:21 → N04 16:03 → HCPC 07-25 17:18
PROVIDERS: ADMIT Internal Medicine; ATTEND Internal Medicine